=== PATIENT | male | born 1945 | race African-American/Black ===

== ENCOUNTER → 2020-07-17 | Outpatient (CLI) | payer MEDICARE, OTHER ==
--- NOTE | 2020-07-17 12:49 | XR ---
EXAMINATION TYPE: XR chest 2V DATE OF EXAM: 07/17/2020 CLINICAL HISTORY: Prostate cancer, renal cancer. Preprocedure imaging. TECHNIQUE: Frontal and lateral views of the chest are obtained. COMPARISON: chest radiograph FINDINGS: The cardiomediastinal silhouette is within normal limits for size. Pulmonary vasculature i s normal. There is no focal air space opacity, pleural effusion, or pneumothorax seen. There is multi level bridging osteophytosis of the thoracic spine. IMPRESSION: 1. No acute cardiopulmonary process. 2. Thoracic spine bridging osteophytosis may represent diffuse idiopathic skeletal hyperostosis (DISH ).
--- NOTE | 2020-07-17 13:15 | CT ---
EXAMINATION TYPE: CT abdomen pelvis w con DATE OF EXAM: 07/17/2020 COMPARISON: None. HISTORY: abnormal prostate biopsy, prostate cancer. CT DLP: 2155.6 mGycm, Automated Exposure Control for Dose Reduction was Utilized. CONTRAST: CT scan of the abdomen and pelvis is performed with oral and with IV Contrast, patient injected with 80 mL of Isovue 300. FINDINGS: LUNG BASES: Mild cardiomegaly. Tiny anterior-inferior pericardial effusion. LIVER/GB: Tiny 2 to 3 mm calcified dependent gallstone axial image 27. Single calcification right hep atic lobectomy 19. PANCREAS: No significant abnormality is seen. SPLEEN: No significant abnormality is seen. ADRENALS: No significant abnormality is seen. KIDNEYS: Symmetric cortical medullary uptake and excretion of both kidneys with asymmetric cortical t hinning and atrophy to the left kidney noted. BOWEL: Oral contrast was not reached level of distal ileum. Small bowel feces sign distal ileal loops . No suspicious small bowel dilatation. Findings consistent with delayed passage of ingested material to colonic level. Contrast is passed through stomach which is now poorly distended and thus suboptim ally evaluated. Normal-appearing appendix seen ascending from cecum. Few scattered colonic diverticul a. No CT evidence for acute diverticulitis PROSTATE/SEMINAL VESICLES: Mildly enlarged prostate gland bulging on bladder base. No adjacent peripr osthetic adenopathy. Slightly bulky but symmetric appearing bilateral seminal vesicles. LYMPH NODES: No greater than 1cm abdominal or pelvic lymph nodes are appreciated. Prominent but subc entimeter aortocaval lymph node below level of renal vessels measures 12 x 8 mm axial image 47. OSSEOUS STRUCTURES: Severe degenerative change of both hip joints with marked joint space loss along with moderate head and neck collar spurring and extensive subchondral cystic change and sclerosis at the joint space. Multilevel facet arthropathy is present. OTHER: No significant additional abnormality is seen. IMPRESSION: No definitive mass or greater than 1 cm adenopathy. Prominent but subcentimeter retroper itoneal lymph nodes noted.
--- NOTE | 2020-07-18 10:05 | NM ---
EXAMINATION TYPE: NM bone scan whole body DATE OF EXAM: 07/17/2020 COMPARISON: CT abdomen pelvis 07/17/2020 HISTORY: Prostate cancer Delayed whole-body scanning was performed following the injection of 24.3 mCi Tc 99m MDP. Images acq uired 3 hours post injection. FINDINGS: No suspicious focal activity. There is bilateral degenerative change of the shoulders, hips, knees, a nd feet. There are also areas of uptake that appear degenerative in nature involving the thoracic spi ne and sternomanubrial joint. IMPRESSION: No focal activity suspicious for prostate cancer.
== END | disposition home or self-care (01) ==
LOC: RADNMMAIN 10:40
PROVIDERS: ATTEND Urology
DX: R59.0 Localized enlarged lymph nodes (principal); C61 Malignant neoplasm of prostate
CPT/HCPCS: 82565; 84520; 71046; 74177; 36415; 78306; A9503; Q9967

== ENCOUNTER → 2020-10-04 | Outpatient (CLI) | payer MEDICARE, OTHER ==
[2020-10-04 12:15] LABS: Basophils % (A) 1 %; Eosinophils # (A) 0.1 k/uL (0-0.7); Eosinophils % (A) 1 %; HCT 38.5 % (39.0-53.0); HGB 12.6 gm/dL (13.0-17.5); Lymphocytes # (A) 2.4 k/uL (1.0-4.8); Lymphocytes % (A) 36 %; MCH 30.7 pg (25.0-35.0); MCHC 32.8 g/dL (31.0-37.0); MCV 93.8 fL (80.0-100.0); Monocytes # (A) 0.5 k/uL (0-1.0); Monocytes % (A) 8 %; Neutrophils # (A) 3.3 k/uL (1.3-7.7); Neutrophils % (A) 51 %; Platelet Count 108 k/uL (150-450); RBC 4.11 m/uL (4.30-5.90); RDW 13.7 % (11.5-15.5); WBC 6.5 k/uL (3.8-10.6)
[2020-10-04 12:29] LABS: Calcium 10.2 mg/dL (8.4-10.2); Potassium 4.1 mmol/L (3.5-5.1)
== END | disposition home or self-care (01) ==
LOC: LABPAT 11:27
PROVIDERS: ATTEND Urology
DX: Z01.818 Encounter for other preprocedural examination (principal); C61 Malignant neoplasm of prostate; Z79.899 Other long term (current) drug therapy
CPT/HCPCS: 80048; 85025

== ENCOUNTER 2020-10-11 07:37 | Day surgery (SDC) | payer MEDICARE, OTHER ==
[2020-10-09 15:20] VITALS: BMI 39.5
--- NOTE | 2020-10-09 15:39 | P.GSHP ---
History of Present Illness H&P Date: 10/09/20 74 yo male with newly diagnosed t1c,G9 prostate cancer who is undergoing lhrh /ebrt therapy for his prostate cancer comes for a SPACEOR infusion to protect the rectum during radiation. The risks complications and alternatives have been discussed. - Constitutional Constitutional: Denies chills, Denies fever - EENT Eyes: denies blurred vision, denies pain Ears, nose, mouth and throat: Denies headache, Denies sore throat - Cardiovascular Cardiovascular: Denies chest pain, Denies shortness of breath - Respiratory Respiratory: Denies cough, Denies 7 - Gastrointestinal Gastrointestinal: Denies abdominal pain, Denies diarrhea, Denies nausea, Denies vomiting - Genitourinary (Female) Genitourinary: Denies dysuria, Denies hematuria - Genitourinary (Male) Genitourinary: Denies dysuria, Denies hematuria - Musculoskeletal Musculoskeletal: Denies myalgias - Integumentary Integumentary: Denies pruritus, Denies rash - Neurological Neurological: Denies numbness, Denies weakness - Psychiatric Psychiatric: Denies anxiety, Denies depression - Endocrine Endocrine: Denies fatigue, Denies weight change Past Medical History Past Medical History: Cancer, Diabetes Mellitus, Hyperlipidemia, Hypertension Additional Past Medical History / Comment(s): prostate cancer. gout History of Any Multi-Drug Resistant Organisms: None Reported Additional Past Surgical History / Comment(s): renal mass removed, Past Anesthesia/Blood Transfusion Reactions: No Reported Reaction Smoking Status: Never smoker - Past Family History Brother(s) Family Medical History: Cancer Medications and Allergies Home Medications Medication Instructions Recorded Confirmed Type Allopurinol [Zyloprim] 100 mg PO BID 10/09/20 10/09/20 History Aspirin [Adult Low Dose Aspirin EC] 81 mg PO DAILY 10/09/20 10/09/20 History Colchicine 0.6 mg PO DAILY 10/09/20 10/09/20 History Simvastatin [Zocor] 80 mg PO DAILY 10/09/20 10/09/20 History amLODIPine BESYLATE/BENAZEPRIL 1 cap PO DAILY 10/09/20 10/09/20 History [Lotrel 10-20 MG] cloNIDine HCL [Catapres] 0.1 mg PO BID 10/09/20 10/09/20 History glipiZIDE [Glucotrol] 2.5 mg PO AC-BID 10/09/20 10/09/20 History Allergies Allergy/AdvReac Type Severity Reaction Status Date / Time No Known Allergies Allergy Verified 10/09/20 14:55 Surgical - Exam - General well developed, well nourished, no distress - Eyes PERRL - ENT no hearing loss - Neck no masses - Respiratory normal expansion, normal respiratory effort - Cardiovascular Rhythm: regular - Abdomen Abdomen: soft, non tender - Genitourinary enlarged but palpably benign prostate normal penis with no external lesions, testicles present - Rectum Rectum: no tenderness - Integumentary no rash, no growths - Neurologic normal coordination, normal sensation - Musculoskeletal labored gait due to arthritis - Psychiatric oriented to time, oriented to person, oriented to place, speech is normal, memory intact Assessment and Plan Assessment: Impression: Prostate cancer with EBRT/LHRH therapy Plan: SPACEOR transperineal infusion
[~2020-10-11 07:37] MED LIST: DEXAMETHASONE SOD PHOSPHATE 4 MG/ML 1 ML VIAL IV ONE; HYDROmorphone 0.5 MG/0.5 ML SYRINGE IVP PRN; LACTATED RINGERS 1,000 ML IV SCH; LIDOCAINE 1% (10MG/ML) FOR IV START INTRADERMA PRN; MIDAZOLAM 2 MG/2 ML VIAL IV PRN; ONDANSETRON 4 MG/2 ML VIAL IVP ONE
[2020-10-11 08:51] LABS: Glucose,Whole Blood 131 mg/dL (75-99)
[2020-10-11] MEDS ORDERED: LIDOCAINE 2% (PF) 20 MG/ML 2 ML VIAL SQ ONE ×2 (08:55)
[2020-10-11] MEDS ORDERED: GLYCOPYRROLATE 0.2 MG/ML 2 ML VIAL ONE (09:18)
[2020-10-11] MEDS ORDERED: LIDOCAINE 1% INJ 10MG/ML (20 ML MDV) ONE (09:18)
[2020-10-11] MEDS ORDERED: KETAMINE 10 MG/ML 20 ML VIAL ONE (09:18)
[2020-10-11] MEDS ORDERED: PROPOFOL 10 MG/ML 20 ML VIAL IV ONE (09:18)
[2020-10-11] MEDS ORDERED: fentaNYL (PF) 50 MCG/ML 2 ML AMP ONE (09:18)
[2020-10-11] MEDS ORDERED: MIDAZOLAM 2 MG/2 ML VIAL ONE (09:18)
--- NOTE | 2020-10-11 09:56 | P.OP ---
Date of Procedure: 10/11/20 Preoperative Diagnosis: Adenocarcinoma of the prostate Postoperative Diagnosis: Same Procedure(s) Performed: SpaceOAR Implant Anesthesia: MAC Surgeon: Darek Bond Estimated Blood Loss (ml): 5 IV fluids (ml): 400 Pathology: none sent Condition: stable Disposition: PACU Indications for Procedure: 74 yo male with newly diagnosed T1c, [place] 9 prostate cancer who is undergoing IMRT and androgen deprivation therapy for his prostate cancer. He comes for a SPACEOR implant to protect the rectum during radiation. Operative Findings: Good separation of prostate and rectum achieved. Description of Procedure: The patient was taken to the operating room and placed in the dorsolithotomy position, with his legs supported in Max stirrups. The external genitalia was prepped and draped sterilely. The Bruel and Kjaer transrectal ultrasound probe was placed intrarectally. The prostate was imaged. The probe was then placed within the stabilizing stand. A spinal needle was advanced under ultrasonic guidance to the level of the urogenital diaphragm, and lidocaine was used to infiltrate the tissues as the needle was withdrawn. Next, the SpaceOAR needle was passed through the midline of the perineum, 1-2 cm anterior to the anal opening. The needle was slowly advanced under ultrasonic guidance until the needle tip was located within the fat plane between the prostate and rectum, at the level of the mid prostate gland. The needle was confirmed to be midline on the axial imaging. A small amount of normal saline was injected for hydrodissection. Next, the SpaceOAR components were mixed and loaded into the Y connector per protocol. The Y connector was then connected to the needle, and the components were injected slowly over a course of approximately 12 seconds. A total of 10 ml was injected. Significant distance was created between the prostate and rectum, as desired. It should be noted that at no point was there any concern of rectal perforation. The needle was withdrawn, as well as the transrectal ultrasound probe, and the procedure was terminated. The patient tolerated the procedure well and was taken to the recovery room in stable condition.
[2020-10-11 10:15] VITALS: TEMP 96.9
[2020-10-11 10:47] VITALS: RESP 16
[2020-10-11 10:56] LABS: Glucose,Whole Blood 127 mg/dL (75-99)
[2020-10-11 11:26] VITALS: BP 141/85; PULSE 79
== END 2020-10-11 12:00 | disposition home or self-care (01) ==
LOC: OR 07:37
PROVIDERS: ATTEND Urology
DX: C61 Malignant neoplasm of prostate (principal); I10 Essential (primary) hypertension; E11.9 Type 2 diabetes mellitus without complications; M19.90 Unspecified osteoarthritis, unspecified site; M10.9 Gout, unspecified; D69.6 Thrombocytopenia, unspecified; E78.5 Hyperlipidemia, unspecified; E66.01 Morbid (severe) obesity due to excess calories; Z79.84 Long term (current) use of oral hypoglycemic drugs; Z79.82 Long term (current) use of aspirin; Z79.899 Other long term (current) drug therapy; Z98.890 Other specified postprocedural states; Z68.41 Body mass index [BMI] 40.0-44.9, adult; Z80.9 Family history of malignant neoplasm, unspecified
CPT/HCPCS: 55874; J2250; J1100; J0690; J2405; J2001 ×2; J3010; J2704

== ENCOUNTER → 2020-10-29 | Outpatient (CLI) | payer MEDICARE, OTHER ==
--- NOTE | 2020-10-29 11:02 | US ---
EXAMINATION TYPE: US kidneys/renal and bladder DATE OF EXAM: 10/29/2020 COMPARISON: CT July 17, 2020 CLINICAL HISTORY: N18.3 chronic kidney disease stage 3. CKD stage 3, patient states in 2008 he had a right renal mass removed. EXAM MEASUREMENTS: Right Kidney: 12.5 x 5.9 x 6.0 cm Left Kidney: 10.2 x 5.1 x 4.2 cm Right Kidney: no hydronephrosis, 2.2cm cystic area superior pole with smaller 1.2cm cystic area infer ior pole Left Kidney: measures smaller in size when compared to right kidney, no hydronephrosis, 0.9cm hypoech oic area superior pole Bladder: not fully distended, appears wnl as seen Bilateral Jets seen: right jet seen, left jet not seen There is no evidence for hydronephrosis at this point in time bilaterally. No nephrolithiasis is see n. Asymmetric diminished size to left kidney with increase cortical echogenicity. The urinary bladde r is is not greatly distended. Bilateral ureteral jets are not seen. IMPRESSION: Evidence of chronic medical renal disease greater in the left kidney redemonstrated. No h ydronephrosis noted bilaterally.
== END | disposition home or self-care (01) ==
LOC: RADUSWWP 10:07
PROVIDERS: ATTEND Internal Medicine Nephrology
DX: N18.30 Chronic kidney disease, stage 3 unspecified (principal)
CPT/HCPCS: 76770; 77385

== ENCOUNTER → 2020-12-28 | Outpatient (CLI) | payer MEDICARE, OTHER | END | disposition home or self-care (01) | LOC: LABWHC1 15:11 | PROVIDERS: ATTEND Radiology Radiation Oncology | DX: C61 Malignant neoplasm of prostate (principal) | CPT/HCPCS: 36415; 84153 ==

== ENCOUNTER → 2021-01-21 | Outpatient (CLI) | payer MEDICARE, OTHER ==
--- NOTE | 2021-01-21 19:40 | XR ---
AP pelvis HISTORY: Right hip pain Single frontal view of the pelvis Marked osteoarthritic change is present in bilateral hips, there is loss of joint space, marginal spu rring, subchondral geode formation and sclerosis. There is a tilt of the pelvis. Bone mineralization is maintained. Possible phleboliths along the scrotum on the right. Sclerotic density present in the left proximal femur near the greater trochanter which is indeterminate in a symmetric. Degenerative d isc changes present in the lower lumbar spine. IMPRESSION: Osteoarthritic changes. Findings in the proximal left femur may represent bone island but focus is indeterminate, consider bone scan as indicated. Additional findings above.
== END | disposition home or self-care (01) ==
LOC: LABWHC1 16:14
PROVIDERS: ATTEND Orthopaedic Surgery
DX: M16.0 Bilateral primary osteoarthritis of hip (principal)
CPT/HCPCS: 72170

== ENCOUNTER → 2021-01-23 | Outpatient (CLI) | payer MEDICARE, OTHER ==
[2021-01-23 16:45] LABS: Appearance,Urine Clear (Clear); Bilirubin,Urine Negative (Negative); Blood,Urine Negative (Negative); Color,Urine Yellow; Glucose,Urine (UA) Negative (Negative); Hyaline Casts,Urine 4 /lpf (0-2); Ketones,Urine Negative (Negative); Leukocyte Esterase,Urine Negative (Negative); Mucus,Urine Rare /hpf; Nitrite,Urine Negative (Negative); PH, Urine 5.5 (5.0-8.0); Protein,Urine 1+ (Negative); RBC,Urine 1 /hpf (0-5); Specific Gravity,Urine 1.015 (1.001-1.035); Urobilinogen,Urine <2.0 mg/dL (<2.0); WBC,Urine 1 /hpf (0-5)
[2021-01-24 00:19] LABS: HCT 35.2 % (39.6-50.0); HGB 11.5 g/dL (13.0-17.0); MCH 31.5 pg (27.0-32.0); MCHC 32.7 g/dL (32.0-37.0); MCV 96.4 fL (80.0-97.0); Mean Platelet Volume 12.4 fL (9.5-12.2); Platelet Count 68 X 10*3/uL (140-440); RBC 3.65 X 10*6/uL (4.40-5.60); RDW 13.8 % (11.5-14.5); WBC 4.14 X 10*3/uL (4.50-10.00)
[2021-01-24 04:44] LABS: Urine Creatinine 181.7 mg/dL
[2021-01-24 16:47] LABS: % Iron Saturation 23.02 (15.00-50.00); African American GFR (CKD) 62.3 (60.0-200.0); Albumin 4.8 g/dL (3.80-4.90); Albumin/Globulin Ratio 1.92 (1.60-3.17); Anion Gap 14.2 mmol/L (4.00-12.00); BUN/Creat Ratio 19.23 Ratio (12.00-20.00); Calcium 10.1 mg/dL (8.7-10.3); Carbon Dioxide 24.8 mmol/L (21.6-31.8); Globulin 2.5 g/dL (1.6-3.3); Non-African American GFR(CKD) 53.8 (60.0-200.0); Phosphorus 3.7 mg/dL (2.4-5.1); Potassium 4.1 mmol/L (3.5-5.5); Total Bilirubin 0.3 mg/dL (0.2-1.2); Total Protein 7.3 g/dL (6.2-8.2); Uric Acid 4.8 mg/dL (3.7-8.7)
== END | disposition home or self-care (01) ==
LOC: LABWHC1 14:49
PROVIDERS: ATTEND Nurse Practitioner Family
DX: N18.30 Chronic kidney disease, stage 3 unspecified (principal); N39.0 Urinary tract infection, site not specified; N25.81 Secondary hyperparathyroidism of renal origin; E55.9 Vitamin D deficiency, unspecified; D64.9 Anemia, unspecified; M10.9 Gout, unspecified; R80.9 Proteinuria, unspecified
CPT/HCPCS: 36415; 80053; 81001; 82043; 82306; 82570; 82728; 83540; 83550; 83735; 83970; 84100; 84550; 85027

== ENCOUNTER → 2021-02-18 | Outpatient (CLI) | payer MEDICARE, OTHER | END | disposition home or self-care (01) | LOC: LABPAT 13:51 | PROVIDERS: ATTEND Orthopaedic Surgery | DX: Z01.812 Encounter for preprocedural laboratory examination (principal) | CPT/HCPCS: 87070 ==

== ENCOUNTER → 2021-02-18 | Outpatient (CLI) | payer MEDICARE, OTHER ==
[2021-02-18 20:49] LABS: Non-African American GFR(CKD) 49.1 (60.0-200.0)
[2021-02-18 23:34] LABS: Hemoglobin A1C 5.7 % (4.0-6.0)
== END | disposition home or self-care (01) ==
LOC: LABWHC1 13:54
PROVIDERS: ATTEND Internal Medicine
DX: E11.9 Type 2 diabetes mellitus without complications (principal)
CPT/HCPCS: 36415; 82565; 83036; 84520

== ENCOUNTER → 2021-02-26 | Day surgery (SDC) | payer MEDICARE, OTHER ==
[2021-02-22 09:25] VITALS: BMI 40.3
--- NOTE | 2021-02-25 10:55 | HP ---
HISTORY AND PHYSICAL CHIEF COMPLAINT: Right hip pain. HISTORY OF PRESENT ILLNESS: The patient is a 75-year-old retired male who presents with progressive right hip pain for the past 3 years. It has worsened recently. He is having pain with any attempted weightbearing activities. He notes groin and thigh pain. He has had a previous injection without much relief. He does use a cane and a wheelchair. PAST MEDICAL HISTORY: Significant for type 2 diabetes, gout, hypercholesterolemia, hypertension, prostate cancer and hypothyroidism. PAST SURGICAL HISTORY: Negative. CURRENT MEDICATIONS: 1. Allopurinol. 2. Amlodipine. 3. Aspirin. 4. Clonidine. 5. Colchicine. 6. Glipizide. 7. Simvastatin. ALLERGIES: He denies drug allergies. FAMILY HISTORY: Significant for heart disease and cancer. SOCIAL HISTORY: Negative for current tobacco or alcohol use. REVIEW OF SYSTEMS: Sixteen-point review of systems otherwise reviewed and is noncontributory. PHYSICAL EXAMINATION: On examination, the patient is approximately 5 feet 8 inches, 265 pounds of endomorphic habitus. HEENT exam is nonfocal. Neck is supple. Passive motion right hip, flexion 30 degrees, external rotation with the hip flexed 20 degrees, internal rotation zero degrees with pain. Clinically, he has shortening of the right lower extremity compared to the left. He walks with an antalgic gait pattern. His distal neurovascular exam appears intact in the right lower extremity. AP of the pelvis obtained in the office shows severe right hip osteoarthrosis with bone- on-bone changes and subchondral sclerosis. IMPRESSION: 1. Right hip severe osteoarthrosis-symptomatic. 2. Increased body mass index. 3. Non-insulin dependent diabetes. RECOMMENDATIONS: I talked to the patient at length regarding his condition and treatment options. At this point, he is quite limited because of pain related to his osteoarthrosis despite conservative measures with use of medications, injections, and a cane. He has also worked on weight loss. After thorough discussion, he opts to proceed with surgery. We will plan to proceed with right total hip arthroplasty utilizing a direct lateral approach. Risks and benefits were discussed at length in layman's terms. We will institute DVT prophylaxis postoperatively. The patient underwent preoperative medical evaluation by Dr. Washburn. MMARABELLAL / IJN: [id number] /
[~2021-02-26] MED LIST changes: +ACETAMINOPHEN TAB 500 MG TAB PO PRN; +MELOXICAM 7.5 MG TAB PO PRN; +TRANEXAMIC ACID 1,000 MG in SODIUM CHLORIDE 0.9% 100 ML IVPB PRN; +ceFAZolin 3 GM in SODIUM CHLORIDE 0.9% 100 ML IVPB PRN
[2021-02-26 14:00] LABS: Glucose,Whole Blood 126 mg/dL (75-99)
[2021-02-26 14:07] VITALS: BP 166/83; PULSE 92; RESP 20; TEMP 97.4
[2021-02-26 14:17] LABS: Basophils % (A) 0 %; Eosinophils % (A) 1 %; HCT 33.2 % (39.0-53.0); HGB 11.8 gm/dL (13.0-17.5); Lymphocytes # (A) 0.7 k/uL (1.0-4.8); Lymphocytes % (A) 22 %; MCH 33.3 pg (25.0-35.0); MCHC 35.4 g/dL (31.0-37.0); MCV 94.1 fL (80.0-100.0); Mean Platelet Volume 8.9; Monocytes # (A) 0.3 k/uL (0-1.0); Monocytes % (A) 10 %; Neutrophils # (A) 2.2 k/uL (1.3-7.7); Neutrophils % (A) 64 %; RBC 3.53 m/uL (4.30-5.90); RDW 13.9 % (11.5-15.5); WBC 3.4 k/uL (3.8-10.6)
[2021-02-26 14:20] LABS: Platelet Count 53 k/uL (150-450)
== END ==
LOC: OR 13:23
PROVIDERS: ATTEND Orthopaedic Surgery
DX: M16.11 Unilateral primary osteoarthritis, right hip (principal); I10 Essential (primary) hypertension; E11.9 Type 2 diabetes mellitus without complications; E78.00 Pure hypercholesterolemia, unspecified; E03.9 Hypothyroidism, unspecified; Z53.9 Procedure and treatment not carried out, unspecified reason; Z79.82 Long term (current) use of aspirin; Z79.84 Long term (current) use of oral hypoglycemic drugs; Z79.899 Other long term (current) drug therapy; Z82.49 Family history of ischemic heart disease and other diseases of the circulatory system; Z80.9 Family history of malignant neoplasm, unspecified; Z85.46 Personal history of malignant neoplasm of prostate
CPT/HCPCS: 85025; J1100; J2405; 86850; 86900; 86901

== ENCOUNTER → 2021-05-03 | Outpatient (CLI) | payer MEDICARE, OTHER | END | disposition home or self-care (01) | LOC: LABWHC1 13:16 | PROVIDERS: ATTEND Radiology Radiation Oncology | DX: C61 Malignant neoplasm of prostate (principal); Z79.818 Long term (current) use of other agents affecting estrogen receptors and estrogen levels | CPT/HCPCS: 36415; 84153 ==

== ENCOUNTER → 2021-10-30 | Outpatient (CLI) | payer MEDICARE, OTHER | END | disposition home or self-care (01) | LOC: LABWHC1 15:51 | PROVIDERS: ATTEND Radiology Radiation Oncology | DX: C61 Malignant neoplasm of prostate (principal); Z79.818 Long term (current) use of other agents affecting estrogen receptors and estrogen levels | CPT/HCPCS: 36415; 84153 ==

== ENCOUNTER → 2022-05-16 | Outpatient (CLI) | payer MEDICARE, OTHER ==
[2022-05-16 14:47] LABS: Partial Thromboplastin Time 24.5 sec (22.0-30.0); Prothrombin Time 10.5 sec (9.0-12.0)
[2022-05-16 18:05] LABS: African American GFR (CKD) 61.9 (60.0-200.0); Anion Gap 13.3 mmol/L (10.00-18.00); BUN/Creat Ratio 16.54 Ratio (12.00-20.00); Blood Urea Nitrogen 21.5 mg/dL (9.0-27.0); Calcium 9.8 mg/dL (8.7-10.3); Carbon Dioxide 22.7 mmol/L (20.0-27.5); Non-African American GFR(CKD) 53.4 (60.0-200.0); Potassium 4.2 mmol/L (3.5-5.5)
[2022-05-16 19:00] LABS: Basophils # (A) 0 X 10*3/uL (0.00-0.10); Basophils % (A) 0 %; Eosinophils # (A) 0.02 X 10*3/uL (0.04-0.35); Eosinophils % (A) 0.4 %; HCT 33.1 % (39.6-50.0); HGB 10.2 g/dL (13.0-17.0); Immature Grans, Automated 0.4 %; Lymphocytes # (A) 1.47 X 10*3/uL (0.90-5.00); Lymphocytes % (A) 30.6 %; MCH 29.1 pg (27.0-32.0); MCHC 30.8 g/dL (32.0-37.0); MCV 94.6 fL (80.0-97.0); Mean Platelet Volume 10.7 fL (9.5-12.2); Monocytes # (A) 0.53 X 10*3/uL (0.20-1.00); NRBC Per 100 WBC 0 /100 WBCS (0.0-0.0); Neutrophils # (A) 2.76 X 10*3/uL (1.80-7.70); Neutrophils % (A) 57.6 %; Platelet Count 86 X 10*3/uL (140-440); RBC Morphology NORMAL; RDW 14.7 % (11.5-14.5)
== END | disposition home or self-care (01) ==
LOC: LABPAT 13:52
PROVIDERS: ATTEND Orthopaedic Surgery
DX: Z01.812 Encounter for preprocedural laboratory examination (principal); Z22.322 Carrier or suspected carrier of Methicillin resistant Staphylococcus aureus; M16.11 Unilateral primary osteoarthritis, right hip
CPT/HCPCS: 80048; 85025; 85610; 85730; 87070

== ENCOUNTER 2022-05-27 07:52 | Inpatient (IN) | payer MEDICARE, OTHER ==
[2022-05-21 11:08] VITALS: BMI 38.0
--- NOTE | 2022-05-26 10:00 | HP ---
HISTORY AND PHYSICAL CHIEF COMPLAINT: Right hip pain. HISTORY OF PRESENT ILLNESS: The patient is a 76-year-old retired male who presents with progressive right hip pain for the past several years, worsening recently. He has a difficult time getting up from a seated position. He also has significant pain with weight-bearing activities. He has been using a cane. He has also tried medications and injection, without much relief. PAST MEDICAL HISTORY: Significant for arthritis, type 2 diabetes, gout, hypercholesterolemia, hypertension, hypothyroidism, prostate disease and thrombocytopenia. PAST SURGICAL HISTORY: Negative. CURRENT MEDICATIONS: Allopurinol, amlodipine, aspirin clonidine, colchicine, glipizide and simvastatin. ALLERGIES: HE DENIES DRUG ALLERGIES. FAMILY HISTORY: Significant for cancer and heart disease. SOCIAL HISTORY: Negative for current tobacco or alcohol use. REVIEW OF SYSTEMS: Sixteen-point review of systems is otherwise reviewed and noncontributory. PHYSICAL EXAMINATION: On examination, the patient is approximately 5 feet 8 inches, 250 pounds of endomorphic habitus. HEENT exam is nonfocal. Neck is supple. On examination of the right hip, active range of motion: Flexion 60 degrees, external rotation with the hip flexed 20 degrees, internal rotation zero degrees with pain. He has an antalgic gait pattern. His distal neurovascular exam appears intact in the right lower extremity. AP of the pelvis obtained in the office showed severe right hip osteoarthrosis with [id number] changes. IMPRESSION: 1. Right hip severe osteoarthrosis. 2. Rum-radkyfm-ubhwckjdq diabetes. 3. History of thrombocytopenia. RECOMMENDATIONS: I talked to the patient at length regarding his condition along with treatment options. At this point he is quite limited because of pain related to his osteoarthrosis despite conservative measures. After thorough discussion, he opts to proceed with surgery. We will plan to proceed with right total hip arthroplasty utilizing the lateral approach. Potentially he will require platelet transfusion postoperatively. MMODL / IJN: [id number] /
[~2022-05-27 07:52] MED LIST changes: -ACETAMINOPHEN TAB 500 MG TAB PO PRN; -LACTATED RINGERS 1,000 ML IV SCH; -MELOXICAM 7.5 MG TAB PO PRN; -TRANEXAMIC ACID 1,000 MG in SODIUM CHLORIDE 0.9% 100 ML IVPB PRN; +TRANEXAMIC ACID IN NACL,ISO-OS 1,000 MG in SALINE 1 100ML.BAG IVPB PRN; -ceFAZolin 3 GM in SODIUM CHLORIDE 0.9% 100 ML IVPB PRN
[2022-05-27 08:57] LABS: Glucose,Whole Blood 121 mg/dL (70-110)
[2022-05-27] MEDS: MELOXICAM 7.5 MG TAB PO PRN (09:02)
[2022-05-27] MEDS: ACETAMINOPHEN TAB 500 MG TAB PO PRN (09:02)
[2022-05-27 09:13] LABS: Basophils % (A) 0 %; Eosinophils % (A) 1 %; HGB 10.4 gm/dL (13.0-17.5); Lymphocytes # (A) 1.1 k/uL (1.0-4.8); Lymphocytes % (A) 28 %; MCH 31.3 pg (25.0-35.0); MCHC 32.5 g/dL (31.0-37.0); MCV 96.1 fL (80.0-100.0); Mean Platelet Volume 9.3; Monocytes # (A) 0.3 k/uL (0-1.0); Monocytes % (A) 9 %; Neutrophils # (A) 2.3 k/uL (1.3-7.7); Neutrophils % (A) 60 %; RBC 3.33 m/uL (4.30-5.90); RDW 15.4 % (11.5-15.5); WBC 3.9 k/uL (3.8-10.6)
[2022-05-27 09:22] LABS: Platelet Count 67 k/uL (150-450)
[2022-05-27 09:23] LABS: RBC Morphology Normal
[2022-05-27] MEDS ORDERED: ACETAMINOPHEN TAB 325 MG TAB PO PRN (10:04)
--- NOTE | 2022-05-27 10:49 | P.PN ---
Progress Note - Text Progress Note Date: 05/27/22 The patient's platelet count was 67,000. We will plan on admitting him and transfusing platelets tomorrow morning, anticipating proceeding with surgery tomorrow afternoon.
[2022-05-27] MEDS: LACTATED RINGERS 1,000 ML IV SCH (11:45)
[2022-05-27 11:59] LABS: Glucose,Whole Blood 120 mg/dL (70-110)
[2022-05-27 16:35] LABS: Glucose,Whole Blood 183 mg/dL (70-110)
--- NOTE | 2022-05-27 20:14 | CONS ---
CONSULTATION DATE OF SERVICE: 05/27/2022 REASON FOR CONSULTATION: Advice regarding diabetes mellitus and other medical issues, requested by Orthopedic Surgery. HISTORY OF PRESENT ILLNESS: This 76-year-old gentleman with a past medical history of diabetes and hyperlipidemia, being followed by Dr. Washburn in the outpatient setting, had thrombocytopenia, which is being evaluated by Hematology/Oncology. The platelets were found to be 67. Platelet transfusion is being arranged prior to the surgery. No chest pain. No palpitations. No fever. PAST MEDICAL HISTORY: Reviewed. It includes diabetes mellitus and hypertension. HOME MEDICATIONS: Reviewed. They include Glucotrol. Doses and the rest of the medications are noted. ALLERGIES: NONE. FAMILY HISTORY: History of cancer. SOCIAL HISTORY: No history of smoking or alcohol. REVIEW OF SYSTEMS: Fourteen-point review of systems negative except as mentioned earlier. PHYSICAL EXAMINATION: Pulse is 65, blood pressure 151/73, respiration 18. HEENT: Conjunctivae normal. NECK: No jugular venous distention. CARDIOVASCULAR: S1, S2 muffled. RESPIRATION: Breath sounds diminished at the bases. No rhonchi. No crackles. ABDOMEN: Soft, nontender. LEGS: No edema. No swelling. NERVOUS SYSTEM: No focal deficit. SKIN: No ulcer, rash, bleeding. JOINTS: No active deforming arthropathy. LABS: WBC ntd platelets 67. Glucose noted. ASSESSMENT: 1. Right hip severe degenerative joint disease for surgery. 2. Thrombocytopenia. 3. Diabetes mellitus, type 2. 4. Hypertension. 5. Multiple medical issues. RECOMMENDATIONS AND DISCUSSION: In this 76-year-old gentleman has presented for surgery at this time. The patient has thrombocytopenia. Platelet transfusion has been arranged. We will follow the patient closely. Resume the home medications. The patient may be asked to follow up with primary physician and Hematology after discharge. Thank you, Dr. Barrios, for letting us participate in the care of this patient. MMODL / IJN: [id number] / MTDD
[2022-05-27] MEDS: ATORVASTATIN 40 MG TAB PO SCH (21:18)
[2022-05-27] MEDS: cloNIDine HCL 0.1 MG TAB PO SCH (21:18)
[2022-05-27 21:29] LABS: Glucose,Whole Blood 142 mg/dL (70-110)
[2022-05-28 07:09] LABS: Basophils % (A) 0 %; Eosinophils % (A) 0 %; HCT 29.4 % (39.0-53.0); HGB 9.7 gm/dL (13.0-17.5); Hypochromasia Slight; Lymphocytes # (A) 1.2 k/uL (1.0-4.8); Lymphocytes % (A) 22 %; MCH 31.4 pg (25.0-35.0); MCV 95.2 fL (80.0-100.0); Mean Platelet Volume 9.5; Monocytes # (A) 0.3 k/uL (0-1.0); Monocytes % (A) 7 %; Neutrophils # (A) 3.6 k/uL (1.3-7.7); Neutrophils % (A) 70 %; RBC 3.08 m/uL (4.30-5.90); WBC 5.2 k/uL (3.8-10.6)
[2022-05-28 07:11] LABS: Glucose,Whole Blood 127 mg/dL (70-110)
[2022-05-28 07:14] LABS: Platelet Count 82 k/uL (150-450)
[2022-05-28] MEDS: cloNIDine HCL 0.1 MG TAB PO SCH ×3 (07:29→21:24)
[2022-05-28 10:47] LABS: African American GFR (CKD) 70.3 (60.0-200.0); Anion Gap 10.8 mmol/L (10.00-18.00); BUN/Creat Ratio 19.23 Ratio (12.00-20.00); Blood Urea Nitrogen 22.5 mg/dL (9.0-27.0); Calcium 9.7 mg/dL (8.7-10.3); Carbon Dioxide 26.1 mmol/L (20.0-27.5); Non-African American GFR(CKD) 60.6 (60.0-200.0); Potassium 4.2 mmol/L (3.5-5.5)
[2022-05-28] MEDS: LATANOPROST 0.005% OPHTH DROPS 2.5 ML BTL BOTH EYES SCH (10:51)
[2022-05-28] MEDS: METOPROLOL SUCCINATE (ER) 50 MG TAB.ER.24H PO SCH (10:51)
[2022-05-28 11:50] LABS: Glucose,Whole Blood 101 mg/dL (70-110)
[2022-05-28] MEDS: LACTATED RINGERS 1,000 ML IV SCH (12:23)
[2022-05-28 12:31] LABS: Glucose,Whole Blood 98 mg/dL (70-110)
[2022-05-28] MEDS ORDERED: ACETAMINOPHEN TAB 500 MG TAB ONE (12:47)
[2022-05-28] MEDS ORDERED: ONDANSETRON 4 MG/2 ML VIAL ONE (12:47)
[2022-05-28] MEDS: MELOXICAM 7.5 MG TAB PO PRN (12:51)
[2022-05-28] MEDS ORDERED: DEXAMETHASONE SOD PHOSPHATE 4 MG/ML 1 ML VIAL IVP ONE (12:51)
[2022-05-28] MEDS: ACETAMINOPHEN TAB 500 MG TAB PO PRN (12:51)
[2022-05-28] MEDS ORDERED: SUCCINYLCHOLINE CHLORIDE 100 MG/5 ML SYR IV ONE (13:27)
[2022-05-28] MEDS ORDERED: PROPOFOL 10 MG/ML 20 ML VIAL IV ONE (13:27)
[2022-05-28] MEDS ORDERED: TRANEXAMIC ACID IN NACL,ISO-OS 1,000 MG/100 ML BAG ONE (13:27)
[2022-05-28] MEDS ORDERED: MIDAZOLAM 2 MG/2 ML VIAL ONE (13:27)
[2022-05-28] MEDS ORDERED: LIDOCAINE 2% INJ 20 MG/ML (2 ML VIAL) ONE (13:27)
[2022-05-28] MEDS ORDERED: SODIUM CHLORIDE 0.9% IRRIG 1,000 ML BTL IRRIGATION ONE (13:27)
[2022-05-28] MEDS ORDERED: HEPARIN SODIUM,PORCINE 10,000 UNIT/ML 1 ML VIAL ONE (13:27)
[2022-05-28] MEDS ORDERED: fentaNYL (PF) 50 MCG/ML 2 ML AMP ONE (13:27)
[2022-05-28] MEDS ORDERED: HYDROmorphone (PF) 1 MG/ML ONE (13:27)
--- NOTE | 2022-05-28 14:41 | P.PN ---
Subjective Progress Note Date: 05/28/22 This is a 76-year-old male who was recently admitted under orthopedic services for progressive right hip pain that had been worsening and recently causing increased difficulty in ambulation and continued pain with significant pain during weightbearing activities. Medical management consulted for low platelets and patient is scheduled tentatively for surgery today. Patient was evaluated by hematology/oncology and platelets were 67. Patient received platelets and plan for surgery. Patient is currently afebrile denies any chest pain or shortness of breath. Patient is currently nothing by mouth for the procedure and recommend to continue monitoring Accu-Cheks before meals and at bedtime and continue with sliding scale and close monitoring of blood sugars. Platelets today are 82. Review of systems: Constitutional: reports of fatigue, fever, or chills Cardiovascular: No reports of chest pain or palpitations Respiratory: No reports of worsening shortness of breath or cough GI: No reports of nausea, no reports of of vomiting, no reports of diarrhea : No reports of dysuria or retention Neurovascular: reports of generalized weakness and right hip pain All medications have been reviewed Active Medications Acetaminophen (Acetaminophen Tab 325 Mg Tab) 650 mg PO Q6HR PRN PRN Reason: Fever and/ or Pain Allopurinol (Allopurinol 100 Mg Tab) 100 mg PO 1200 [facility] Amlodipine Besylate (Amlodipine 10 Mg Tab) 10 mg PO 1200 [facility] Atorvastatin Calcium (Atorvastatin 40 Mg Tab) 40 mg PO HS [facility] Last Admin: 05/27/22 21:18 Dose: 40 mg Clonidine (Clonidine Hcl 0.1 Mg Tab) 0.1 mg PO TID [facility] Last Admin: 05/28/22 07:29 Dose: 0.1 mg Glipizide (Glipizide 5 Mg Tab) 5 mg PO 1200 [facility] Lactated Ringer's (Lactated Ringers) 1,000 mls @ 20 mls/hr IV .Q24H [facility] Stop: 06/26/22 05:41 Last Admin: 05/27/22 11:45 Dose: Not Given Latanoprost (Latanoprost 0.005% Ophth Drops 2.5 Ml Btl) 1 drops BOTH EYES DAILY [facility] Last Admin: 05/28/22 10:51 Dose: 1 drops Lidocaine HCl (Lidocaine 1% (10mg/Ml) For Iv Start) 0.1 ml INTRADERMA PER PROTOCOL PRN PRN Reason: IV Start Stop: 06/26/22 05:41 Lisinopril (Lisinopril 20 Mg Tab) 20 mg PO 1200 [facility] Metoprolol Succinate (Metoprolol Succinate (Er) 50 Mg Tab.Er.24h) 50 mg PO 1200 [facility] Last Admin: 05/28/22 10:51 Dose: 50 mg Torsemide (Torsemide 20 Mg Tab) 5 mg PO 1200 [facility] PHYSICAL EXAMINATION: GENERAL: The patient is alert and oriented x4, thin build, ill-appearing HEENT: Pupils are round and equally reacting to light. EOMI. no scleral icterus. No conjunctival pallor. Normocephalic, atraumatic. No pharyngeal erythema. No thyromegaly. CARDIOVASCULAR: S1 and S2 muffled PULMONARY: diminished breath sounds bilaterally with no wheezing or rhonchi noted. ABDOMEN: soft. Nontender on exam. obese. non-distended, normoactive bowel sounds. No palpable organomegaly. MUSCULOSKELETAL: No joint swelling or deformity. EXTREMITIES: No cyanosis, clubbing, or pedal edema. Right hip pain NEUROLOGICAL: Gross neurological examination did not reveal any focal deficits. Diffuse weakness SKIN: No rashes. Assessment: Severe osteoarthrosis of the right hip Diabetes mellitus type 2 History of thrombocytopenia Hypertension Multiple medical issues GI prophylaxis DVT prophylaxis Full code Plan: Recommend to continue with current medications and management with orthopedic services. Patient platelets currently 82 and awaiting a unit of platelets for surgery and is scheduled for surgery of the right hip today. Recommend repeat labs in the a.m. and close monitoring of platelet count. Monitor for any signs of bleeding and will follow-up with repeat labs. Patient is currently nothing by mouth and recommend close monitoring of blood sugars as patient is diabetic and will resume diet when surgically clear and continue to monitor Accu-Cheks before meals and at bedtime. Due to multiple complex medical issues, prognosis is guarded. We will continue to monitor and follow along closely with orthopedics during hospitalization. Recommend close hematology follow-up after discharge as well. Thank you for this consultation. The impression and plan of care has been dictated by Angelica De, nurse practitioner as directed. Dr. Carlos MD I have performed a history and examination and MDM of this patient, discussed the same with the dictator, and agree with the dictator's assessment and plan as written ,documented as a scribe. Based on total visit time, I have performed more than 50% of the visit. Any additional findings or plans will be noted. Objective - Vital Signs Vital signs: Vital Signs Temp 97.6 F 05/28/22 12:30 Pulse 66 05/28/22 12:30 Resp 16 05/28/22 12:30 BP 172/79 05/28/22 12:30 Pulse Ox 98 05/28/22 12:30 FiO2 Intake & Output 05/27/22 05/28/22 05/28/22 18:59 06:59 18:59 Intake Total 292 Output Total 1750 750 Balance -1458 -750 Weight 108.86 kg Intake: Blood Product 292 Platelet Pheresis Pas 292 Psoralen Unit [id number] Output: Urine 1750 750 Other: Voiding Method Toilet Toilet Urinal # Voids 1 - Labs CBC & Chem 7: 05/28/22 06:43 05/28/22 06:43 Labs: Abnormal Lab Results - Last 24 Hours (Table) 05/27/22 05/27/22 05/28/22 Range/Units 16:34 21:28 06:43 RBC 3.08 L (4.30-5.90) m/uL Hgb 9.7 L (13.0-17.5) gm/dL Hct 29.4 L (39.0-53.0) % Plt Count 82 L (150-450) k/uL Glucose (70-110) mg/dL POC Glucose (mg/dL) 183 H 142 H (70-110) mg/dL 05/28/22 05/28/22 Range/Units 06:43 07:09 RBC (4.30-5.90) m/uL Hgb (13.0-17.5) gm/dL Hct (39.0-53.0) % Plt Count (150-450) k/uL Glucose 126 H (70-110) mg/dL POC Glucose (mg/dL) 127 H (70-110) mg/dL
[2022-05-28] MEDS ORDERED: HYDROcodone/APAP 5-325MG 1 EACH TAB PO PRN (15:06)
[2022-05-28] MEDS ORDERED: NALOXONE 0.4 MG/ML 1 ML VIAL IV PRN (15:06)
[2022-05-28] MEDS ORDERED: HYDROmorphone 0.5 MG/0.5 ML SYRINGE IVP PRN ×2 (15:06)
--- NOTE | 2022-05-28 15:32 | P.OP ---
Date of Procedure: 05/28/22 Preoperative Diagnosis: Severe right hip osteoarthrosis Postoperative Diagnosis: Same Procedure(s) Performed: Right total hip arthroplastypress-fitlateral approach Implants: Depuy Corail size 12 collared KLA press-fit femoral stem, 36+5 cobalt chrome femoral head, 60 mm Ripley acetabular shell with neutral polyethylene liner. Anesthesia: CARMENZA Surgeon: Padilla Barrios Spring Machine Operator #1: Ney Faith Estimated Blood Loss (ml): 150 Pathology: other (Femoral head) Condition: stable Disposition: PACU Indications for Procedure: Patient 76-year-old noted presents with progressive right hip pain secondary to osteoporosis despite conservative measures. A discussion of the risks and benefits of operative intervention versus continued conservative measures was made with patient. He opted proceed with surgery. Operative risks to include infection, neurovascular injury, development of blood clots, fracture, leg length discrepancy, instability, possible need for subsequent procedures was discussed. Informed consent was obtained. Operative Findings: As below Description of Procedure: The patient was brought to the operating room, and after induction of spinal anesthesia was placed in a lateral decubitus position. The bony prominences were appropriately padded. The pelvis was stable perpendicular to the floor with a pegboard. The right lower extremity was prepped and draped in normal fashion. A 12 cm incision was then made centered over the greater trochanter extending superiorly to level the ASIS and distally in line with the femoral shaft. The skin and subcutaneous tissues were divided sharply. Electrocautery was used for hemostasis. The fascia mary and gluteus lorie fascia was split in line with the skin incision. The muscle fibers were bluntly dissected proximally. A self-retaining retractor was placed. The anterior and posterior margins of the gluteus medius muscles identified and the anterior two thirds was detached from the greater trochanter with electrocautery. The gluteus minimus tendon was identified and detached in a similar fashion. A wide capsulotomy was performed. The femoral neck fracture was identified in the lower neck cut was made approximately 1 1/2 cm above the level of the lesser trochanter with a sagittal saw at a 45 the shaft. The head was then extracted with a corkscrew. Attention was then paid towards preparing the acetabular. Anterior and posterior retractors were placed. The remaining capsular labral tissues debrided sharply clearly defining the acetabular margins. Began reaming with a 53 mm reamer taking care to initially medialize, then reaming at 45 of abduction and 20 of anteversion. Sequential reaming is performed up to 59 mm. This was down to bleeding bony surface. A trial 60 mm acetabular shell was inserted at 45 of abduction and 20 of anteversion. This was fully seated. There was good rim fit and stability. A neutral polyethylene liner was then impacted. Care taken to avoid any soft tissue interposition. Attention was then paid towards preparing the proximal femur. A box chisel was used to open the metaphyseal region. A canal finder was used to find the femoral canal. Sequential broaching was performed up to a size 12. This is placed in 15 of anteversion with the leg perpendicular floor judging off the trans-epicondylar axis. There was good rotational stability. A calcar mill was used to fashion the medial calcar. A trial KLA neck along with a 36 mm + 5 trial head was placed. The hip was gently reduced. It was taken through range of motion. I felt to be stable in flexion and extension with internal and external rotation. I felt there was adequate pentecostal of soft tissue tension. The hip was gently dislocated. The trial components removed. Pulsatile lavage was utilized. The final size 12 KLA collared femoral stem was inserted again with the leg perpendicular to the floor in 15 of anteversion. Again there was good rotational stability. A 36 mm +5 cobalt chrome femoral head was gently impacted. The hip was gently reduced. Again it was taken through motion and felt to be stable in flexion and extension with internal and external rotation. Pulsatile lavage was again utilized. With the leg in abduction the gluteus minimus and medius tendons reattached to the greater trochanter with #2 Ethibond suture. There was minimal drainage therefore a deep drain was not placed. The fascia mary and gluteus lorie fascia was closed with #2 Ethibond suture. The subcutaneous tissues were reapproximated interrupted 2-0 Vicryl sutures. The skin was reapproximated with 3-0 subcuticular strata fix suture. Skin tape and adhesive was applied. A sterile dressing was applied. The patient was awoken from sedation and transferred to recovery room in good condition. Blood loss was estimated 150 mL. No complications were incurred. Sponge and needle counts were correct in the case. Ney PAGE assisted during the major composes case to include exposure, implantation, and closure.
--- NOTE | 2022-05-28 16:02 | XR ---
Limited right hip HISTORY: Status post right hip arthroplasty Single frontal view of the right hip Patient is status post right hip arthroplasty. There is anatomic alignment. Lucencies present within the soft tissues. IMPRESSION: Orthopedic follow-up.
[2022-05-28] MEDS: lisinopriL 20 MG TAB PO SCH (17:34)
[2022-05-28] MEDS: amLODIPine 10 MG TAB PO SCH (17:34)
[2022-05-28] MEDS: allopurinoL 100 MG TAB PO SCH (17:34)
[2022-05-28] MEDS: TORSEMIDE 20 MG TAB PO SCH (17:34)
[2022-05-28] MEDS: glipiZIDE 5 MG TAB PO SCH (17:35)
[2022-05-28] MEDS: ATORVASTATIN 40 MG TAB PO SCH (20:45)
[2022-05-28] MEDS ORDERED: SENNOSIDES-DOCUSATE SODIUM 1 EACH TAB PO SCH (21:00)
[2022-05-28 21:12] LABS: Glucose,Whole Blood 121 mg/dL (70-110)
[2022-05-28] MEDS: HYDROcodone/APAP 7.5-325MG 1 EACH TAB PO PRN (22:26)
[2022-05-29] MEDS: HYDROcodone/APAP 7.5-325MG 1 EACH TAB PO PRN ×2 (05:00→11:35)
[2022-05-29 07:05] LABS: Glucose,Whole Blood 116 mg/dL (70-110)
[2022-05-29 07:40] LABS: African American GFR (CKD) 85 (>60 ml/min/1.73 sqM); Anion Gap 12 mmol/L; Blood Urea Nitrogen 22 mg/dL (9-20); Calcium 9.5 mg/dL (8.4-10.2); Carbon Dioxide 25 mmol/L (22-30); Chloride 102 mmol/L (98-107); Glucose 121 mg/dL (74-99); Non-African American GFR(CKD) 73 (>60 ml/min/1.73 sqM); Potassium 4.5 mmol/L (3.5-5.1); Sodium 139 mmol/L (137-145)
[2022-05-29] MEDS: LACTATED RINGERS 1,000 ML IV SCH (07:44)
[2022-05-29 07:51] VITALS: RESP 18
[2022-05-29] MEDS ORDERED: ENOXAPARIN 40 MG/0.4 ML SYRINGE SQ SCH (09:00)
[2022-05-29 10:08] LABS: Basophils # (A) 0.01 X 10*3/uL (0.00-0.10); Basophils % (A) 0.1 %; Eosinophils # (A) 0 X 10*3/uL (0.04-0.35); Eosinophils % (A) 0 %; HCT 31.7 % (39.6-50.0); HGB 9.7 g/dL (13.0-17.0); Immature Grans, Automated 0.6 %; Lymphocytes # (A) 1.22 X 10*3/uL (0.90-5.00); Lymphocytes % (A) 17.3 %; MCH 29.2 pg (27.0-32.0); MCHC 30.6 g/dL (32.0-37.0); MCV 95.5 fL (80.0-97.0); Monocytes % (A) 9.9 %; NRBC Per 100 WBC 0 /100 WBCS (0.0-0.0); Neutrophils # (A) 5.08 X 10*3/uL (1.80-7.70); Neutrophils % (A) 72.1 %; Platelet Count 104 X 10*3/uL (140-440); RBC 3.32 X 10*6/uL (4.40-5.60); RDW 14.7 % (11.5-14.5); WBC 7.05 X 10*3/uL (4.50-10.00)
[2022-05-29] MEDS: LATANOPROST 0.005% OPHTH DROPS 2.5 ML BTL BOTH EYES SCH (10:25)
[2022-05-29] MEDS: cloNIDine HCL 0.1 MG TAB PO SCH (10:26)
[2022-05-29 11:16] LABS: Glucose,Whole Blood 131 mg/dL (70-110)
[2022-05-29 11:19] LABS: Glucose,Whole Blood 132 mg/dL (70-110)
--- NOTE | 2022-05-29 11:27 | P.PN ---
Subjective Progress Note Date: 05/29/22 Principal diagnosis: Status post right total hip arthroplasty, lateral approach Patient was evaluated today at bedside, he is resting in his hospital chair. He was able to ambulate with physical therapy with use of a walker. Patient states that he went very well. His pain is currently controlled with current medication. He has been urinating with no difficulty. He denies any headaches, lightheadedness, chest pain or shortness of breath. Labs were also reviewed this morning, platelets are at 102. Objective - Vital Signs Vital signs: Vital Signs Temp 98.2 F 05/29/22 07:50 Pulse 71 05/29/22 07:50 Resp 18 05/29/22 08:00 BP 171/71 05/29/22 07:50 Pulse Ox 96 05/29/22 07:53 FiO2 Intake & Output 05/28/22 05/29/22 05/29/22 18:59 06:59 18:59 Intake Total 1197 Output Total 900 450 Balance 297 -450 Intake: IV 850 Blood Product 347 Platelet Pheresis Pas 347 Psoralen Unit [id number] Output: Urine 750 450 Estimated Blood Loss 150 Other: Voiding Method Toilet Toilet Toilet Urinal Urinal Urinal # Voids 1 # Bowel Movements 0 - Exam Right lower extremity: Incision is clean, dry, and intact. The postop dressing is in good condition. There is minimal soft tissue swelling and ecchymosis surrounding the medial and lateral aspects of the incision. Calf is soft, no tenderness with palpation. Plantar flexion, dorsiflexion, EHL, FHL are intact. Sensory exam to light touch throughout the extremity is intact, dorsal pedis pulses 2+. - Labs CBC & Chem 7: 05/29/22 06:15 05/29/22 06:15 Labs: Abnormal Lab Results - Last 24 Hours (Table) 05/28/22 05/29/22 05/29/22 Range/Units 21:09 06:15 06:15 RBC 3.32 L (4.40-5.60) X 10*6/uL Hgb 9.7 L (13.0-17.0) g/dL Hct 31.7 L (39.6-50.0) % MCHC 30.6 L (32.0-37.0) g/dL RDW 14.7 H (11.5-14.5) % Plt Count 104 L (140-440) X 10*3/uL Eosinophils # 0 L (0.04-0.35) X 10*3/uL BUN 22 H (9-20) mg/dL Glucose 121 H (74-99) mg/dL POC Glucose (mg/dL) 121 H (70-110) mg/dL 05/29/22 05/29/22 05/29/22 Range/Units 07:04 11:13 11:18 RBC (4.40-5.60) X 10*6/uL Hgb (13.0-17.0) g/dL Hct (39.6-50.0) % MCHC (32.0-37.0) g/dL RDW (11.5-14.5) % Plt Count (140-440) X 10*3/uL Eosinophils # (0.04-0.35) X 10*3/uL BUN (9-20) mg/dL Glucose (74-99) mg/dL POC Glucose (mg/dL) 116 H 131 H 132 H (70-110) mg/dL Assessment and Plan Assessment: Postoperative day #1 status post right total hip arthroplasty lateral approach Thrombocytopenia Other medical comorbidities Plan: Pain control, continue with current medications DVT prophylaxis, I did speak with internal medicine today regarding this. A consult was placed for hematology for evaluation and recommendations for outpatient anticoagulation treatment Wound care was discussed with patient, this including showering instructions along with icing and elevating Hip precautions were discussed with patient, continue to use walker with ambulation Home therapy/nursing after discharge Encourage incentive spirometer Medical recommendations Discharge planning: Planning for discharge home today Time with Patient: Less than 30
--- NOTE | 2022-05-29 12:18 | P.DS ---
Providers Date of admission: 05/27/22 09:55 Expected date of discharge: 05/29/22 Attending physician: Padilla Barrios Consults: 05/27/22 11:30 Consult Physician Routine Consulting Provider: Jacob Gonzalez Consult Reason/Comments: Medical Management - right hip OA - thrombocytopenia Do you want consulting provider notified?: Yes Primary care physician: Wu Sin Hospital Course: Date of admission: 05/27/2022 Date of discharge: 05/29/2022 Admission diagnosis: Right hip osteoarthritis, thrombocytopenia Discharge diagnosis: Status post right total hip arthroplasty lateral approach, thrombocytopenia Attending physician: Dr. Barrios Surgical procedures: Right total hip arthroplasty lateral approach Brief history: Patient is a 76-year-old male with a history of progressive primary right hip osteoarthritis. At this point patient has failed conservative treatment measures and has opted to proceed with a elective right total hip arthroplasty lateral approach. Hospital course: Details of patient's surgery can be found in operative report. Patient tolerated the procedure well and was subsequently transported to orthopedic floor. Patient's orthopeidc and medical care was provided daily. Patient had daily laboratory tests performed for evaluation of overall blood counts. Patient had daily physical therapy to include strengthening range of motion as well as education with walker ambulation. Patient was treated with Lovenox for their postoperative DVT prophylaxis during their inpatient stay. Patient was noted to have a relatively uneventful postoperative course. Patient was originally scheduled for surgery for 05/27/2022. Initial labs demonstrated a femoral sided pain, patient's surgery was rescheduled for 05/28/2022. He did receive 1 unit of platelets prior to the surgery on 05/28/2022 and then received a second unit after surgery. Hematology was available for consultation and recommendations during her hospital stay. Patient reported satisfactory pain control with oral pain medications by postoperative day 0. Patient showed satisfactory progress with physical therapy. Patient moved steadily through the program and had no difficulty meeting the goals by postoperative day 1. Given patient's otherwise satisfactory course and having met physical therapy goals, plan is to discharge patient home on postoperative day 1. Discharge condition/disposition: Patient will be discharged home in stable condition. Discharge medications: Instructions are given on resumption of patient's normal daily medications per primary care recommendation, in addition patient will be prescribed Geronimo 7.5 mg/325 mg, aspirin 81 mg, Colace on her milligrams. Discharge instructions: 1. Wound care and infection precautions, keep incision dry and covered while showering, no lotions, creams, moisturizers. No soaking, tubs, pools, hottubs. Do not scrub over the incision. 2. Weight-bear as tolerated with walker / cane until follow-up. Hip precautions to include, no crossing of the legs, no sleeping on affected side, no sitting in low chairs 3. Ice and elevate when necessary. Do not exceed 20 minutes per hour with ice pack. 4. Utilize compression sleeve until seen at first follow up appointment. 5. Visiting nursing care. 6. Home physical therapy including home CPM. 7. Pain meds and anticoagulants per prescription. 8. Pain medication has potential to cause constipation. Increase oral fluid and fiber intake. Contact primary care provider if you have not had a bowel movement within 48 hours after discharge 9. No anti-inflammatory medication until discussed at first post operative visit, this including Motrin, Aleve, Mobic, Diclofenac. 10. Follow up in office at 2 weeks postop with Mumtaz Curiel PA-C/Ney Betancourt 11. Follow up with your primary care doctor 7-10 days after discharge. 12. Contact [facility] with any questions, . Procedures: Right total hip arthroplasty, lateral approach Plan - Discharge Summary Discharge Rx Participant: Yes New Discharge Prescriptions: New HYDROcodone/APAP 7.5-325MG [Geronimo 7.5] 1 each PO Q6HR PRN #28 tab PRN Reason: Pain Aspirin [Adult Low Dose Aspirin EC] 81 mg PO BID #60 tab Docusate [Colace] 100 mg PO DAILY #30 capsule No Action cloNIDine HCL [Catapres] 0.1 mg PO TID amLODIPine BESYLATE/BENAZEPRIL [Lotrel 10-20 MG] 1 cap PO 1200 allopurinoL [Zyloprim] 100 mg PO 1200 Simvastatin [Zocor] 80 mg PO HS glipiZIDE [Glucotrol] 5 mg PO 1200 Metoprolol Succinate [Toprol XL] 50 mg PO 1200 Torsemide [Demadex] 5 mg PO 1200 Latanoprost Ophth [Xalatan 0.005%] 1 drop BOTH EYES DAILY Discharge Medication List Simvastatin [Zocor] 80 mg PO HS 10/09/20 [History] allopurinoL [Zyloprim] 100 mg PO 1200 10/09/20 [History] amLODIPine BESYLATE/BENAZEPRIL [Lotrel 10-20 MG] 1 cap PO 1200 10/09/20 [Hi story] cloNIDine HCL [Catapres] 0.1 mg PO TID 10/09/20 [History] Latanoprost Ophth [Xalatan 0.005%] 1 drop BOTH EYES DAILY 02/22/21 [History] glipiZIDE [Glucotrol] 5 mg PO 1200 02/22/21 [History] Metoprolol Succinate [Toprol XL] 50 mg PO 1200 05/21/22 [History] Torsemide [Demadex] 5 mg PO 1200 05/21/22 [History] Aspirin [Adult Low Dose Aspirin EC] 81 mg PO BID #60 tab 05/29/22 [Rx] Docusate [Colace] 100 mg PO DAILY #30 capsule 05/29/22 [Rx] HYDROcodone/APAP 7.5-325MG [Geronimo 7.5] 1 each PO Q6HR PRN #28 tab 05/29/22 [Rx] Follow up Appointment(s)/Referral(s): Ney Faith, GABE [PHYSICIAN RF TEST TECHNICIAN] - 06/12/22 Patient Instructions/Handouts: Total Hip Replacement (DC) Activity/Diet/Wound Care/Special Instructions: Orthopedic Discharge Instructions: 1. Wound care and infection precautions, [keep incision dry and covered while showering], no lotions, creams, moisturizers. No soaking, pools, hot tubs. Do not scrub over incision. 2. Weight-bear [as tolerated] with walker / cane until follow-up. 3. Ice and elevate when necessary. Do not exceed 20 minutes per hour with ice pack. 4. Utilize compression sleeve until seen at first follow up appointment. 5. Pain meds and anticoagulants per prescription. 6. Pain medication has potential to cause constipation. Increase oral fluid and fiber intake. Contact primary care provider if you have not had a bowel movement within 48 hours after discharge. 7. No anti-inflammatory medication until discussed at first post operative visit, this including Motrin, Aleve, Mobic, Diclofenac. 8. Follow up in office at 2 weeks postop with Mumtaz Curiel PA-C/Ney Faith PA-C 9. Follow up with your primary care doctor 7-10 days after discharge. 10. Contact [facility] with any questions, . Hip precautions: 1. Avoid sitting in a low chair 2. No crossing her legs 3. Avoid sleeping on the affected side Discharge Disposition: HOME WITH HOME HEALTH SERVICES
[2022-05-29] MEDS: allopurinoL 100 MG TAB PO SCH (12:58)
[2022-05-29] MEDS: lisinopriL 20 MG TAB PO SCH (12:59)
[2022-05-29] MEDS: amLODIPine 10 MG TAB PO SCH (12:59)
[2022-05-29] MEDS: glipiZIDE 5 MG TAB PO SCH (12:59)
[2022-05-29] MEDS: METOPROLOL SUCCINATE (ER) 50 MG TAB.ER.24H PO SCH (13:00)
[2022-05-29] MEDS: TORSEMIDE 20 MG TAB PO SCH (13:08)
[2022-05-29 13:18] VITALS: BP 108/57; PULSE 78; TEMP 98.4
--- NOTE | 2022-05-29 15:32 | P.PN ---
Subjective Progress Note Date: 05/29/22 This is a 76-year-old male who was recently admitted under orthopedic services for progressive right hip pain that had been worsening and recently causing increased difficulty in ambulation and continued pain with significant pain during weightbearing activities. Medical management consulted for low platelets and patient is scheduled tentatively for surgery today. Patient was evaluated by hematology/oncology and platelets were 67. Patient received platelets and plan for surgery. Patient is currently afebrile denies any chest pain or shortness of breath. Patient is currently nothing by mouth for the procedure and recommend to continue monitoring Accu-Cheks before meals and at bedtime and continue with sliding scale and close monitoring of blood sugars. Platelets today are 82. 05/29/2022 Patient is seen in follow-up status post total right hip arthroplasty with lateral approach and being closely monitored. Patient plans on being discharged by orthopedics today. Platelets improved to 104 and will be continued on aspirin 81 mg twice a day and follow-up with Dr. Connolly in the outpatient setting hematology. Prescription provided for follow-up labs to monitor platelet level. Also with diabetes recommending resuming home medications and monitoring Accu- Cheks before meals and at bedtime. Other labs reviewed from today and within normal limits. Patient is afebrile and denies any chest pain or shortness of breath. Patient would like to go home today. Patient was able to work with physical therapy and doing relatively well. Patient has support at the home and will be returning home. Review of systems: Constitutional: no reports of fatigue, fever, or chills Cardiovascular: No reports of chest pain or palpitations Respiratory: No reports of shortness of breath or cough GI: No reports of nausea, no reports of of vomiting, no reports of diarrhea : No reports of dysuria or retention Neurovascular: reports of generalized weakness and right hip pain, but manageable All medications have been reviewed PHYSICAL EXAMINATION: GENERAL: The patient is alert and oriented x4, well-developed, well-nourished HEENT: Pupils are round and equally reacting to light. EOMI. no scleral icterus. No conjunctival pallor. Normocephalic, atraumatic. No pharyngeal erythema. No thyromegaly. CARDIOVASCULAR: S1 and S2 muffled PULMONARY: diminished breath sounds bilaterally with no wheezing or rhonchi noted. ABDOMEN: soft. Nontender on exam. obese. non-distended, normoactive bowel sounds. No palpable organomegaly. MUSCULOSKELETAL: No joint swelling or deformity. EXTREMITIES: No cyanosis, clubbing, or pedal edema. Right hip surgical site is dry and intactNEUROLOGICAL: Gross neurological examination did not reveal any focal deficits. Diffuse weakness SKIN: No rashes. Assessment: Severe osteoarthrosis of the right hip Diabetes mellitus type 2 History of thrombocytopenia Hypertension Multiple medical issues GI prophylaxis DVT prophylaxis Full code Plan: Recommend to continue with current medications and management with orthopedic services. Patient platelets morning are 104 and okay for anticoagulation and will continue on double dose of aspirin 81 mg daily and will be following up with hematology in the outpatient setting for further workup. Patient reports he has an appointment and has not been seen in the office yet. Recommend follow-up labs for close monitoring of latelet count and a prescription was provided on discharge . Encouraged the patient to continue to monitor Accu- Cheks before meals and at bedtime and keep a diary for primary care follow-up . Due to multiple complex medical issues, prognosis is guarded. We will continue to monitor and follow along closely with orthopedics during hospitalization. Recommend close hematology follow-up after discharge as well. Thank you for this consultation. Patient anticipates discharge today. The impression and plan of care has been dictated by Angelica De, nurse practitioner as directed. Dr. Juan Jose MD I have performed a history and examination and MDM of this patient, discussed the same with the dictator, and agree with the dictator's assessment and plan as written ,documented as a scribe. Based on total visit time, I have performed more than 50% of the visit. Any additional findings or plans will be noted. Objective - Vital Signs Vital signs: Vital Signs Temp 98.2 F 05/29/22 07:50 Pulse 71 05/29/22 07:50 Resp 18 05/29/22 08:00 BP 171/71 05/29/22 07:50 Pulse Ox 96 05/29/22 07:53 FiO2 Intake & Output 05/28/22 05/29/22 05/29/22 18:59 06:59 18:59 Intake Total 1197 Output Total 900 450 Balance 297 -450 Intake: IV 850 Blood Product 347 Platelet Pheresis Pas 347 Psoralen Unit [id number] Output: Urine 750 450 Estimated Blood Loss 150 Other: Voiding Method Toilet Toilet Toilet Urinal Urinal Urinal # Voids 1 # Bowel Movements 0 - Labs CBC & Chem 7: 05/29/22 06:15 05/29/22 06:15 Labs: Abnormal Lab Results - Last 24 Hours (Table) 05/28/22 05/28/22 05/29/22 Range/Units 06:43 21:09 06:15 BUN 22 H (9-20) mg/dL Glucose 126 H 121 H (70-110) mg/dL POC Glucose (mg/dL) 121 H (70-110) mg/dL 05/29/22 Range/Units 07:04 BUN (9-20) mg/dL Glucose (70-110) mg/dL POC Glucose (mg/dL) 116 H (70-110) mg/dL
== END 2022-05-29 13:58 | disposition home health service (06) | DRG 470 ==
LOC: OR 07:52 → 4SSUR 09:55
PROVIDERS: ADMIT Orthopaedic Surgery; ATTEND Orthopaedic Surgery
PROC: 0SR902A Replacement of Right Hip Joint with Metal on Polyethylene Synthetic Substitute, Uncemented, Open Approach (ICD-10-PCS; principal; 2022-05-28 13:10)
DX: M16.11 Unilateral primary osteoarthritis, right hip (principal); M81.0 Age-related osteoporosis without current pathological fracture; D69.6 Thrombocytopenia, unspecified; E03.9 Hypothyroidism, unspecified; E11.9 Type 2 diabetes mellitus without complications; E78.00 Pure hypercholesterolemia, unspecified; I10 Essential (primary) hypertension; Z79.82 Long term (current) use of aspirin; Z79.84 Long term (current) use of oral hypoglycemic drugs; Z79.899 Other long term (current) drug therapy
CPT/HCPCS: 73501; 80048; 85025; 86850; 86891; 86900; 86901; 94760

== ENCOUNTER 2022-06-06 15:35 | Inpatient (IN) | payer MEDICARE, OTHER ==
[2022-06-06] MEDS ORDERED: FUROSEMIDE 10 MG/ML 4 ML VIAL IV STA (16:04)
--- NOTE | 2022-06-06 16:05 | ED ---
General Adult HPI - General Chief complaint: Extremity Problem,Nontraumatic Stated complaint: Edema Time Seen by Provider: 06/06/22 15:39 Source: patient, EMS, RN notes reviewed Mode of arrival: EMS Limitations: no limitations - History of Present Illness Initial comments: Patient is a pleasant 76-year-old male presenting to the emergency department with concern for ability to take care of himself and leg edema. Patient did have hip replacement surgery done 9 days ago. Patient is still unable to get up on his own. Patient is unable to take care of himself. No chest pain or dyspnea. Patient does have bilateral lower extremity edema. No calf pain. - Related Data Home Medications Medication Instructions Recorded Confirmed Simvastatin [Zocor] 80 mg PO HS 10/09/20 06/06/22 allopurinoL [Zyloprim] 100 mg PO DAILY@1200 10/09/20 06/06/22 amLODIPine BESYLATE/BENAZEPRIL 1 cap PO DAILY@1200 10/09/20 06/06/22 [Lotrel 10-20 MG] cloNIDine HCL [Catapres] 0.1 mg PO TID 10/09/20 06/06/22 Latanoprost Ophth [Xalatan 0.005%] 1 drop BOTH EYES DAILY 02/22/21 06/06/22 glipiZIDE [Glucotrol] 5 mg PO DAILY@1200 02/22/21 06/06/22 Metoprolol Succinate [Toprol XL] 50 mg PO DAILY@1200 05/21/22 06/06/22 Torsemide [Demadex] 5 mg PO DAILY@1200 05/21/22 06/06/22 HYDROcodone/APAP 7.5-325MG [[place] 1 tab PO Q6HR PRN 06/06/22 06/06/22 7.5] Previous Rx's Medication Instructions Recorded Acetaminophen Tab [Tylenol] 650 mg PO Q6HR PRN tab 05/29/22 Aspirin [Adult Low Dose Aspirin EC] 81 mg PO BID #60 tab 05/29/22 Docusate [Colace] 100 mg PO DAILY #30 capsule 05/29/22 Allergies Allergy/AdvReac Type Severity Reaction Status Date / Time No Known Allergies Allergy Verified 06/06/22 16:55 Review of Systems ROS Statement: Those systems with pertinent positive or pertinent negative responses have been documented in the HPI. ROS Other: All systems not noted in ROS Statement are negative. Constitutional: Denies: fever Eyes: Denies: eye pain ENT: Denies: ear pain Respiratory: Denies: cough, dyspnea Cardiovascular: Denies: chest pain Endocrine: Denies: fatigue Gastrointestinal: Denies: abdominal pain Genitourinary: Denies: dysuria Neurological: Reports: as per HPI. Denies: headache, confusion Past Medical History Past Medical History: Cancer, Diabetes Mellitus, Hyperlipidemia, Hypertension, Osteoarthritis (OA), Prostate Disorder Additional Past Medical History / Comment(s): gout, prostate cancer- tx with radiation, hx kidney stone History of Any Multi-Drug Resistant Organisms: None Reported Past Surgical History: Hernia Repair, Orthopedic Surgery Additional Past Surgical History / Comment(s): arthroscopy surya knees, surya cataract/glaucoma surgery Past Anesthesia/Blood Transfusion Reactions: No Reported Reaction Past Psychological History: No Psychological Hx Reported Smoking Status: Never smoker Past Alcohol Use History: None Reported Past Drug Use History: None Reported - Past Family History Brother(s) Family Medical History: Cancer General Exam Limitations: no limitations General appearance: alert, in no apparent distress Head exam: Present: normocephalic Eye exam: Present: normal appearance Neck exam: Present: normal inspection Respiratory exam: Present: normal lung sounds bilaterally Cardiovascular Exam: Present: regular rate, normal rhythm GI/Abdominal exam: Present: soft. Absent: tenderness Extremities exam: Present: pedal edema. Absent: calf tenderness Neurological exam: Present: alert. Absent: motor sensory deficit Psychiatric exam: Present: normal affect, normal mood Skin exam: Present: normal color Course Vital Signs 06/06/22 15:37 Temperature 98.5 F Pulse Rate 92 Respiratory 18 Rate Blood Pressure 140/70 O2 Sat by Pulse 98 Oximetry EKG Findings - EKG Comments: EKG Findings:: Sinus rhythm rate 87. MI 164. QRS 85. QT 315. QTC 360. Normal axis. Normal QRS. Nonspecific T waves. Artifact present. Medical Decision Making - Medical Decision Making Patient evaluated. Patient and family updated. Dr. Gonzalez has been paged for admission, covering Dr. Lopez - Lab Data Result diagrams: 06/06/22 16:35 06/06/22 16:35 Lab Results 06/06/22 06/06/22 06/06/22 Range/Units 16:35 16:35 16:35 WBC 6.8 (3.8-10.6) k/uL RBC 2.89 L (4.30-5.90) m/uL Hgb 8.6 L (13.0-17.5) gm/dL Hct 27.2 L (39.0-53.0) % MCV 94.2 (80.0-100.0) fL MCH 29.6 (25.0-35.0) pg MCHC 31.4 (31.0-37.0) g/dL RDW 14.7 (11.5-15.5) % Plt Count 222 D (150-450) k/uL MPV 7.7 Neutrophils % 75 % Lymphocytes % 13 % Monocytes % 6 % Eosinophils % 2 % Basophils % 0 % Neutrophils # 5.2 (1.3-7.7) k/uL Lymphocytes # 0.9 L (1.0-4.8) k/uL Monocytes # 0.4 (0-1.0) k/uL Eosinophils # 0.1 (0-0.7) k/uL Basophils # 0.0 (0-0.2) k/uL Hypochromasia Slight PT 10.7 (9.0-12.0) sec INR 1.0 (<1.2) APTT 23.2 (22.0-30.0) sec Sodium 134 L (137-145) mmol/L Potassium 5.2 H (3.5-5.1) mmol/L Chloride 103 (98-107) mmol/L Carbon Dioxide 27 (22-30) mmol/L Anion Gap 4 mmol/L BUN 19 (9-20) mg/dL Creatinine 1.00 (0.66-1.25) mg/dL Est GFR (CKD-EPI)AfAm 85 (>60 ml/min/1.73 sqM) Est GFR (CKD-EPI)NonAf 73 (>60 ml/min/1.73 sqM) Glucose 72 L (74-99) mg/dL Calcium 9.4 (8.4-10.2) mg/dL Total Bilirubin 0.6 (0.2-1.3) mg/dL AST 52 (17-59) U/L ALT 33 (4-49) U/L Alkaline Phosphatase 71 (38-126) U/L Troponin I (0.000-0.034) ng/mL NT-Pro-B Natriuret Pep pg/mL Total Protein 6.5 (6.3-8.2) g/dL Albumin 3.4 L (3.5-5.0) g/dL 06/06/22 06/06/22 Range/Units 16:35 16:35 WBC (3.8-10.6) k/uL RBC (4.30-5.90) m/uL Hgb (13.0-17.5) gm/dL Hct (39.0-53.0) % MCV (80.0-100.0) fL MCH (25.0-35.0) pg MCHC (31.0-37.0) g/dL RDW (11.5-15.5) % Plt Count (150-450) k/uL MPV Neutrophils % % Lymphocytes % % Monocytes % % Eosinophils % % Basophils % % Neutrophils # (1.3-7.7) k/uL Lymphocytes # (1.0-4.8) k/uL Monocytes # (0-1.0) k/uL Eosinophils # (0-0.7) k/uL Basophils # (0-0.2) k/uL Hypochromasia PT (9.0-12.0) sec INR (<1.2) APTT (22.0-30.0) sec Sodium (137-145) mmol/L Potassium (3.5-5.1) mmol/L Chloride (98-107) mmol/L Carbon Dioxide (22-30) mmol/L Anion Gap mmol/L BUN (9-20) mg/dL Creatinine (0.66-1.25) mg/dL Est GFR (CKD-EPI)AfAm (>60 ml/min/1.73 sqM) Est GFR (CKD-EPI)NonAf (>60 ml/min/1.73 sqM) Glucose (74-99) mg/dL Calcium (8.4-10.2) mg/dL Total Bilirubin (0.2-1.3) mg/dL AST (17-59) U/L ALT (4-49) U/L Alkaline Phosphatase (38-126) U/L Troponin I <0.012 (0.000-0.034) ng/mL NT-Pro-B Natriuret Pep 53 pg/mL Total Protein (6.3-8.2) g/dL Albumin (3.5-5.0) g/dL - Radiology Data Radiology results: report reviewed (Ultrasound negative for DVT), image reviewed (Chest x-ray shows no acute process) Disposition Clinical Impression: Unable to ambulate, Leg edema Disposition: ADMITTED IP TO THIS HOSP Is patient prescribed a controlled substance at d/c from ED?: No Referrals: January Washburn MD [Primary Care Provider] - 1-2 days Time of Disposition: 18:07
--- NOTE | 2022-06-06 16:26 | XR ---
EXAMINATION TYPE: XR chest 2V DATE OF EXAM: 06/06/2022 COMPARISON: NONE HISTORY: Shortness of breath TECHNIQUE: Frontal and lateral views of the chest are obtained. FINDINGS: Scattered senescent parenchymal changes noted. Hyperinflation compatible with COPD. No evidence for infiltrate. No evidence for atelectasis. Heart size is stable. Mediastinal structures are stable and grossly unremarkable. No evidence for hilar prominence. Degenerative changes dorsal spine. IMPRESSION: 1. No evidence for acute pulmonary disease.
[2022-06-06 16:47] LABS: Basophils % (A) 0 %; Eosinophils # (A) 0.1 k/uL (0-0.7); Eosinophils % (A) 2 %; HCT 27.2 % (39.0-53.0); HGB 8.6 gm/dL (13.0-17.5); Hypochromasia Slight; Lymphocytes # (A) 0.9 k/uL (1.0-4.8); Lymphocytes % (A) 13 %; MCH 29.6 pg (25.0-35.0); MCHC 31.4 g/dL (31.0-37.0); MCV 94.2 fL (80.0-100.0); Mean Platelet Volume 7.7; Monocytes # (A) 0.4 k/uL (0-1.0); Monocytes % (A) 6 %; Neutrophils # (A) 5.2 k/uL (1.3-7.7); Neutrophils % (A) 75 %; RBC 2.89 m/uL (4.30-5.90); RDW 14.7 % (11.5-15.5); WBC 6.8 k/uL (3.8-10.6)
[2022-06-06 16:55] LABS: Albumin 3.4 g/dL (3.5-5.0); Calcium 9.4 mg/dL (8.4-10.2); Platelet Count 222 k/uL (150-450); Total Bilirubin 0.6 mg/dL (0.2-1.3); Total Protein 6.5 g/dL (6.3-8.2)
[2022-06-06 17:04] LABS: Partial Thromboplastin Time 23.2 sec (22.0-30.0); Prothrombin Time 10.7 sec (9.0-12.0)
[2022-06-06 17:09] LABS: Potassium 5.2 mmol/L (3.5-5.1)
--- NOTE | 2022-06-06 17:48 | US ---
EXAMINATION TYPE: US venous doppler duplex LE DATE OF EXAM: 06/06/2022 5:37 PM COMPARISON: NONE CLINICAL HISTORY: edema, post op. SIDE PERFORMED: Bilateral TECHNIQUE: The lower extremity deep venous system is examined utilizing real time linear array sonog katerin with graded compression, doppler sonography and color-flow sonography. VESSELS IMAGED: Common Femoral Vein Deep Femoral Vein Greater Saphenous Vein * Femoral Vein Popliteal Vein Small Saphenous Vein * Proximal Calf Veins, not well seen due to swelling (* superficial vessels) Right Leg: Negative for DVT Left Leg: Negative for DVT Technically difficult study, extensive edema. IMPRESSION: No evidence for DVT at this time.
[2022-06-06] MEDS ORDERED: NALOXONE 0.4 MG/ML 1 ML VIAL IV PRN (18:07)
[2022-06-06 21:09] LABS: Appearance,Urine Clear (Clear); Bilirubin,Urine Negative (Negative); Blood,Urine Negative (Negative); Color,Urine Colorless; Glucose,Urine (UA) Negative (Negative); Ketones,Urine Negative (Negative); Leukocyte Esterase,Urine Negative (Negative); Nitrite,Urine Negative (Negative); Protein,Urine Negative (Negative); Specific Gravity,Urine 1.005 (1.001-1.035); Urobilinogen,Urine <2.0 mg/dL (<2.0)
[2022-06-07] MEDS ORDERED: ACETAMINOPHEN TAB 325 MG TAB PO PRN (00:27)
[2022-06-07 00:35] LABS: Glucose,Whole Blood 102 mg/dL (70-110)
[2022-06-07 08:21] LABS: Glucose,Whole Blood 135 mg/dL (70-110)
[2022-06-07] MEDS: INSULIN ASPART (NovoLOG) 100 UNIT/ML VIAL SQ SCH ×4 (08:24→21:34)
[2022-06-07 08:56] LABS: Basophils # (A) 0.01 X 10*3/uL (0.00-0.10); Basophils % (A) 0.2 %; Eosinophils # (A) 0.11 X 10*3/uL (0.04-0.35); Eosinophils % (A) 1.9 %; HCT 26.9 % (39.6-50.0); Immature Grans, Automated 0.7 %; Lymphocytes # (A) 1.16 X 10*3/uL (0.90-5.00); Lymphocytes % (A) 20.2 %; MCH 28.3 pg (27.0-32.0); MCHC 29.7 g/dL (32.0-37.0); MCV 95.1 fL (80.0-97.0); Mean Platelet Volume 9.6 fL (9.5-12.2); Monocytes # (A) 0.54 X 10*3/uL (0.20-1.00); Monocytes % (A) 9.4 %; NRBC Per 100 WBC 0 /100 WBCS (0.0-0.0); Neutrophils # (A) 3.89 X 10*3/uL (1.80-7.70); Neutrophils % (A) 67.6 %; Platelet Count 218 X 10*3/uL (140-440); RBC 2.83 X 10*6/uL (4.40-5.60); WBC 5.75 X 10*3/uL (4.50-10.00)
[2022-06-07 09:22] LABS: ALT 37 U/L (10-49); AST 36 U/L (14-35); African American GFR (CKD) 77.4 (60.0-200.0); Albumin 3.3 g/dL (3.8-4.9); Albumin/Globulin Ratio 1.27 (1.60-3.17); Alkaline Phosphatase 79 U/L (41-126); BUN/Creat Ratio 15.74 Ratio (12.00-20.00); Bilirubin, Conjugated <0.20 mg/dL (0.20-0.40); Calcium 9.4 mg/dL (8.7-10.3); Carbon Dioxide 28.9 mmol/L (20.0-27.5); Chloride 103 mmol/L (96-109); Globulin 2.6 g/dL (1.6-3.3); Glucose 99 mg/dL (70-110); Magnesium 2.4 mg/dL (1.5-2.4); Non-African American GFR(CKD) 66.8 (60.0-200.0); Potassium 4.5 mmol/L (3.5-5.5); Sodium 141 mmol/L (135-145); Total Protein 5.9 g/dL (6.2-8.2)
[2022-06-07] MEDS: ASPIRIN 81 MG PO SCH ×2 (10:02→21:35)
[2022-06-07] MEDS: LATANOPROST 0.005% OPHTH DROPS 2.5 ML BTL BOTH EYES SCH (10:03)
[2022-06-07] MEDS: HEPARIN SODIUM,PORCINE/PF 5,000 UNIT/0.5 ML SYRINGE SQ SCH ×2 (10:03→21:35)
[2022-06-07] MEDS: DOCUSATE 100 MG CAP PO SCH (10:03)
[2022-06-07] MEDS ORDERED: HYDROcodone/APAP 5-325MG 1 EACH TAB PO PRN (10:55)
--- NOTE | 2022-06-07 11:12 | P.CNOR ---
History of Present Illness - [facility] Consult date: 06/07/22 Requesting physician: Padilla Barrios Consult reason: other History of present illness: History of Presenting Illness Patient is a pleasant 76-year-old male who presented to the ER regarding bilateral lower extremity edema and inability to take care of himself at home. Patient had a total right hip arthroplasty on 05/28/[address] Barrios. Patient was discharged home with his spouse and home care. He states that he was unable to get up and ambulate with assistance from his , he states that it was too much for her. Speaking with day shift RN today she states that patient was not taking medications at home which included his cardiac meds and Lasix because he did not want to use the restroom frequently because he was unable to get up. When entering the patient room, he was sitting up in chair and stated he had just gotten out of the shower. Surgical site dressing was removed, incision is clean dry and intact. Patient states that his pain is managed at this time on current regimen. He states that all needs are met at this time. Patient states he would like to go to rehab. Patient denies any fever or chills, nausea/vomiting, or chest pain. Review of Systems Pertinent postivites and negatives as dicussed in HPI, a complete review of systems was performed and all other sysytems are negative. Physical Examination General: The patient is awake and alert, in no acute distress Skin: Skin is warm and dry with no obvious rashes or lesions. Hairy patches absent, no dorsal skin dimples, no cafe au lait spots, and no surgical incision s. Eye: Pupils are equal, round and reactive to light, extra-ocular movements are intact; there is normal conjunctiva bilaterally. Neck: The neck is supple, there is no tenderness and ROM intact. Cardiovascular: There is a regular rate and rhythm. No murmur, rub or gallop is appreciated. BLE edema noted. Respiratory: Lungs are clear to auscultation, respirations are non-labored, breath sounds are equal. Gastrointestinal: Soft, non-distended, non-tender abdomen. Back: There is no tenderness to palpation in the midline, paralumbar, parathoracic or buttocks region. There is no obvious deformity. Musculoskeletal: ROM limited secondary to pain and stiffness from surgical procedure. Shoulder abduction 5/5, elbow flexors 5/5, wrist dorsiflexors 5/5. finger abductor 5/5, program arranger 5/5, hip flexor 4/5, knee flexor 4/5, ankle dorsiflexor 4/5, ankle plantarflexion 4/5 and extensor hallucis 4/5. Neurological: CN 2-12 intact. There are no obvious motor or sensory deficits. Movement and coordination equal and intact. Sensory exam to light touch intact C5-T1 and intact from L2-S1. Reflexes 2/4 in bilateral upper and lower extremities. Negative Hoffmans, babinski, and clonus signs. Psychiatric: Cooperative, appropriate mood & affect, normal judgment. Assessment and Plan 1. s/p total right hip arthroplasty, post-op Day 10 2. Bilateral lower extremity edema 3. Inability to care for self Plan: -Appreciate wine consultant and team management. -Activity: Ambulate QID, OOB all meals, up and about, limit lifting bending twisting. Use walker or cane if needed for stability. -Daily PT/OT, increase ambulation strength and balance. -Pain control: Adequate at this time -Meds: reviewed -GI ppx: Colace -DVT PPX: Lovenox -Hygiene: May shower. Maintain dressing clean and dry. -Encourage IS 10x/hr -Dispo: Anticipate discharge to rehab when medically stable. *I reviewed and discussed this case with my attending Dr. Barrios, whom has reviewed this chart and films and is in agreement with assessment and plan of care as outlined above. I have personally seen and examined the patient, performed the documentation and the assessment and plan as written. Number of minutes spent on the visit: 20m. Past Medical History Past Medical History: Cancer, Diabetes Mellitus, Hyperlipidemia, Hypertension, Osteoarthritis (OA), Prostate Disorder Additional Past Medical History / Comment(s): gout, prostate cancer- tx with radiation, hx kidney stone History of Any Multi-Drug Resistant Organisms: None Reported Past Surgical History: Hernia Repair, Orthopedic Surgery Additional Past Surgical History / Comment(s): arthroscopy surya knees, Right hip replacement, surya cataract/glaucoma surgery Past Anesthesia/Blood Transfusion Reactions: No Reported Reaction Smoking Status: Never smoker - Past Family History Brother(s) Family Medical History: Cancer Medications and Allergies Home Medications Medication Instructions Recorded Confirmed Type Simvastatin [Zocor] 80 mg PO HS 10/09/20 06/06/22 History allopurinoL [Zyloprim] 100 mg PO DAILY@1200 10/09/20 06/06/22 History amLODIPine BESYLATE/BENAZEPRIL 1 cap PO DAILY@1200 10/09/20 06/06/22 History [Lotrel 10-20 MG] cloNIDine HCL [Catapres] 0.1 mg PO TID 10/09/20 06/06/22 History Latanoprost Ophth [Xalatan 0.005%] 1 drop BOTH EYES DAILY 02/22/21 06/06/22 History glipiZIDE [Glucotrol] 5 mg PO DAILY@1200 02/22/21 06/06/22 History Metoprolol Succinate [Toprol XL] 50 mg PO DAILY@1200 05/21/22 06/06/22 History Torsemide [Demadex] 5 mg PO DAILY@1200 05/21/22 06/06/22 History Acetaminophen Tab [Tylenol] 650 mg PO Q6HR PRN tab 05/29/22 06/06/22 Rx Aspirin [Adult Low Dose Aspirin EC] 81 mg PO BID #60 tab 05/29/22 06/06/22 Rx Docusate [Colace] 100 mg PO DAILY #30 capsule 05/29/22 06/06/22 Rx HYDROcodone/APAP 7.5-325MG [[place] 1 tab PO Q6HR PRN 06/06/22 06/06/22 History 7.5] Allergies Allergy/AdvReac Type Severity Reaction Status Date / Time No Known Allergies Allergy Verified 06/06/22 16:55 Results - Labs Labs: Abnormal Lab Results - Last 24 Hours (Table) 06/06/22 06/06/22 06/07/22 Range/Units 16:35 16:35 06:29 RBC 2.89 L 2.83 L (4.30-5.90) m/uL Hgb 8.6 L 8.0 L (13.0-17.5) gm/dL Hct 27.2 L 26.9 L (39.0-53.0) % MCHC 29.7 L (32.0-37.0) g/dL RDW 15.0 H (11.5-14.5) % Lymphocytes # 0.9 L (1.0-4.8) k/uL Sodium 134 L (137-145) mmol/L Potassium 5.2 H (3.5-5.1) mmol/L Carbon Dioxide (20.0-27.5) mmol/L Anion Gap (10.00-18.00) mmol/L Glucose 72 L (74-99) mg/dL POC Glucose (mg/dL) (70-110) mg/dL Conjugated Bilirubin (0.20-0.40) mg/dL AST (14-35) U/L Total Protein (6.2-8.2) g/dL Albumin 3.4 L (3.5-5.0) g/dL Albumin/Globulin Ratio (1.60-3.17) g/dL Vitamin B12 (200.0-944.0) pg/mL Procalcitonin (0.02-0.09) ng/mL 06/07/22 06/07/22 06/07/22 Range/Units 06:29 06:29 08:20 RBC (4.30-5.90) m/uL Hgb (13.0-17.5) gm/dL Hct (39.0-53.0) % MCHC (32.0-37.0) g/dL RDW (11.5-14.5) % Lymphocytes # (1.0-4.8) k/uL Sodium (137-145) mmol/L Potassium (3.5-5.1) mmol/L Carbon Dioxide 28.9 H (20.0-27.5) mmol/L Anion Gap 9.60 L (10.00-18.00) mmol/L Glucose (74-99) mg/dL POC Glucose (mg/dL) 135 H (70-110) mg/dL Conjugated Bilirubin <0.20 L (0.20-0.40) mg/dL AST 36 H (14-35) U/L Total Protein 5.9 L (6.2-8.2) g/dL Albumin 3.3 L (3.5-5.0) g/dL Albumin/Globulin Ratio 1.27 L (1.60-3.17) g/dL Vitamin B12 1891.0 H (200.0-944.0) pg/mL Procalcitonin 0.22 H (0.02-0.09) ng/mL H & H 06/06/22 06/07/22 Range/Units 16:35 06:29 Hgb 8.6 L 8.0 L (13.0-17.5) gm/dL Hct 27.2 L 26.9 L (39.0-53.0) % Coagulation 06/06/22 Range/Units 16:35 INR 1.0 (<1.2) Result Diagrams: 06/07/22 06:29 06/07/22 06:29
[2022-06-07 11:28] LABS: Glucose,Whole Blood 159 mg/dL (70-110)
--- NOTE | 2022-06-07 11:37 | P.HPIM ---
History of Present Illness This is a pleasant 76 years old -[place] male with past medical history of Diabetes Mellitus, Hyperlipidemia, Hypertension, Osteoarthritis (OA), gout, prostate cancer status post radiotherapy, history of kidney stone. Patient was in the hospital 05/27-05/29 for right hip arthroplasty. Presents because of weakness Patient presents because of inability to take care of himself, his is 86 years old and she has difficulty helping him getting up from sitting position. Patient at baseline walks short distances using a cane, he has history of severe osteoarthritis and he underwent right total hip arthroplasty about 10 days ago, after the procedure and surgery he was getting more difficult to move around and he needed the help of his since he came out of the hospital and to his home. Yesterday his legs were more swollen and his thought is better for him to go to rehab so I decided to come to the emergency room. Patient denies back pain, no numbness or tingling, but he has difficulty moving or bending his lower extremity joints, including both legs symmetrically, he can hardly November of the bed, at the same time they are significantly swollen with bilateral pitting leg edema but no induration. No erythema or evidence of cellulitis. No open wound. Also patient denies chest pain or shortness of breath or coughing. No abdominal pain Patient denies dysuria but complains from increased frequency. Patient also constipated and did not have bowel movement for 2 days, sometimes it was control of his bowel when he P's. He denies headache or dizziness, no blurred vision or slurred speech. No upper extremity weakness or numbness. He denies smoking, alcohol or illicit tracts On admission his glucose was slightly low at 72 Urinalysis is negative. Vitals are stable Labs showing no obesity normal 6.8, hemoglobin 8.6. Rest of CBC is unremarkable. Karen Feiner is unremarkable. Creatinine 1.0, potassium 5.2, sodium 134, glucose low at 72. We checked glucose 102. AST and ALT and rest of liver e nzymes are normal. ProBNP 53, troponin negative. EKG showing normal sinus rhythm at [address]-T changes Chest x-ray: No acute process Venous Doppler of lower extremity: No DVT, excessive erythema In emergency room patient received iv Lasix 40 mgx1 Further labs showing elevated B12 1891, folate is more than 20. procalcitonin is mildly elevated at 0.22. TSH is normal Review of Systems Review of systems CONSTITUTIONAL: No fever, no malaise, no fatigue. HEENT: No recent visual problems or hearing problems. Denied any sore throat. CARDIOVASCULAR: No orthopnea, PND, no palpitations, no syncope. PULMONARY: No shortness of breath, no cough, no hemoptysis. GASTROINTESTINAL: No diarrhea, no nausea, no vomiting, no abdominal pain. Norm oactive bowel sounds. NEUROLOGICAL: No headaches, no numbness. HEMATOLOGICAL: Denies any bleeding or petechiae. GENITOURINARY: Denies any burning micturition, frequency, or urgency. MUSCULOSKELETAL/RHEUMATOLOGICAL: Denies any joint pain, swelling, or any muscle pain. ENDOCRINE: Denies any polyuria or polydipsia. Past Medical History Past Medical History: Cancer, Diabetes Mellitus, Hyperlipidemia, Hypertension, Osteoarthritis (OA), Prostate Disorder Additional Past Medical History / Comment(s): gout, prostate cancer- tx with radiation, hx kidney stone History of Any Multi-Drug Resistant Organisms: None Reported Past Surgical History: Hernia Repair, Orthopedic Surgery Additional Past Surgical History / Comment(s): arthroscopy surya knees, Right hip replacement, surya cataract/glaucoma surgery Past Anesthesia/Blood Transfusion Reactions: No Reported Reaction Smoking Status: Never smoker - Past Family History Brother(s) Family Medical History: Cancer Medications and Allergies Home Medications Medication Instructions Recorded Confirmed Type Simvastatin [Zocor] 80 mg PO HS 10/09/20 06/06/22 History allopurinoL [Zyloprim] 100 mg PO DAILY@119910/09/20 06/06/22 History amLODIPine BESYLATE/BENAZEPRIL 1 cap PO DAILY@119910/09/20 06/06/22 History [Lotrel 10-20 MG] cloNIDine HCL [Catapres] 0.1 mg PO TID 10/09/20 06/06/22 History Latanoprost Ophth [Xalatan 0.005%] 1 drop BOTH EYES DAILY 02/22/21 06/06/22 History glipiZIDE [Glucotrol] 5 mg PO DAILY@1200 02/22/21 06/06/22 History Metoprolol Succinate [Toprol XL] 50 mg PO DAILY@119905/21/22 06/06/22 History Torsemide [Demadex] 5 mg PO DAILY@1200 05/21/22 06/06/22 History Acetaminophen Tab [Tylenol] 650 mg PO Q6HR PRN tab 05/29/22 06/06/22 Rx Aspirin [Adult Low Dose Aspirin EC] 81 mg PO BID #60 tab 05/29/22 06/06/22 Rx Docusate [Colace] 100 mg PO DAILY #30 capsule 05/29/22 06/06/22 Rx HYDROcodone/APAP 7.5-325MG [[place] 1 tab PO Q6HR PRN 06/06/22 06/06/22 History 7.5] Allergies Allergy/AdvReac Type Severity Reaction Status Date / Time No Known Allergies Allergy Verified 06/06/22 16:55 Physical Exam Vitals: Vital Signs Temp Pulse Pulse Resp BP BP Pulse Ox 06/07/22 08:00 98.5 F 108 H 18 184/72 97 06/07/22 02:00 98.4 F 98 16 163/73 95 06/06/22 21:40 98.7 F 100 16 159/73 99 06/06/22 21:11 81 16 137/71 97 06/06/22 18:47 94 16 139/63 100 06/06/22 15:37 98.5 F 92 18 140/70 98 Intake and Output 06/06/22 06/07/22 06/07/22 22:59 06:59 14:59 Output Total 1050 400 Balance -1050 -400 Output: Urine 1050 400 Other: Voiding Method Urinal # Voids 1 Weight 108.862 kg GENERAL: The patient is alert and oriented x3, not in any acute distress. Well developed, well nourished. HEENT: Pupils are round and equally reacting to light. EOMI. No scleral icterus. No conjunctival pallor. Normocephalic, atraumatic. No pharyngeal erythema. No thyromegaly. CARDIOVASCULAR: S1 and S2 present. No murmurs, rubs, or gallops. PULMONARY: Chest is clear to auscultation, no wheezing or crackles. ABDOMEN: Soft, nontender, nondistended, normoactive bowel sounds. No palpable or ganomegaly. MUSCULOSKELETAL: No joint swelling or deformity. -EXTREMITIES: No cyanosis, clubbing, . Bilateral patellar leg edema, 2-3+ -NEUROLOGICAL: Gross neurological examination did not reveal any focal deficits. Cranial nerves are grossly intact. Both lower extremities are weak, he can bar kyleigh lift them off the date, no sensory loss or tingling. Meningeal signs are absent SKIN: No rashes. no petechiae. Results CBC & Chem 7: 06/07/22 06:29 06/07/22 06:29 Labs: Abnormal Lab Results - Last 24 Hours (Table) 06/06/22 06/06/22 06/07/22 Range/Units 16:35 16:35 06:29 RBC 2.89 L 2.83 L (4.30-5.90) m/uL Hgb 8.6 L 8.0 L (13.0-17.5) gm/dL Hct 27.2 L 26.9 L (39.0-53.0) % MCHC 29.7 L (32.0-37.0) g/dL RDW 15.0 H (11.5-14.5) % Lymphocytes # 0.9 L (1.0-4.8) k/uL Sodium 134 L (137-145) mmol/L Potassium 5.2 H (3.5-5.1) mmol/L Carbon Dioxide (20.0-27.5) mmol/L Anion Gap (10.00-18.00) mmol/L Glucose 72 L (74-99) mg/dL POC Glucose (mg/dL) (70-110) mg/dL Conjugated Bilirubin (0.20-0.40) mg/dL AST (14-35) U/L Total Protein (6.2-8.2) g/dL Albumin 3.4 L (3.5-5.0) g/dL Albumin/Globulin Ratio (1.60-3.17) g/dL Vitamin B12 (200.0-944.0) pg/mL Procalcitonin (0.02-0.09) ng/mL 06/07/22 06/07/22 06/07/22 Range/Units 06: 06:29 08:20 RBC (4.30-5.90) m/uL Hgb (13.0-17.5) gm/dL Hct (39.0-53.0) % MCHC (32.0-37.0) g/dL RDW (11.5-14.5) % Lymphocytes # (1.0-4.8) k/uL Sodium (137-145) mmol/L Potassium (3.5-5.1) mmol/L Carbon Dioxide 28.9 H (20.0-27.5) mmol/L Anion Gap 9.60 L (10.00-18.00) mmol/L Glucose (74-99) mg/dL POC Glucose (mg/dL) 135 H (70-110) mg/dL Conjugated Bilirubin <0.20 L (0.20-0.40) mg/dL AST 36 H (14-35) U/L Total Protein 5.9 L (6.2-8.2) g/dL Albumin 3.3 L (3.5-5.0) g/dL Albumin/Globulin Ratio 1.27 L (1.60-3.17) g/dL Vitamin B12 1891.0 H (200.0-944.0) pg/mL Procalcitonin 0.22 H (0.02-0.09) ng/mL Thrombosis Risk Factor Assmnt - Choose All That Apply Each Factor Represents 1 point: History of prior major surgery (<1month), Medical pt on bed rest, Obesity (BMI >25), Swollen legs (current) Other Risk Factors: Yes Each Risk Factor Represents 3 Points: Age 75 years or older Each Risk Factor Represents 5 Points: Elective major lower extremity arthoplasty Thrombosis Risk Factor Assessment Total Risk Factor Score: 12 Thrombosis Risk Factor Assessment Level: High Risk Assessment and Plan Assessment: Bilateral lower extremity weakness and inability to ambulate, but worse since la st surgery for his hip replacement Bilateral lower extremity edema Recent right hip replacement surgery for severe osteoarthritis Diabetes mellitus , with hyperglycemia on admission Hypertension Hyperlipidemia History of prostatic cancer status post radiotherapy History of gout Plan: This is a pleasant 76 years old male who presents with weakness, recent hip surgery and significant leg edema Continue with Lasix Follow up with orthopedic team Hold the glipizide and continue with insulin sliding scale check hemoglobin A1c Continue with metoprolol, clonidine on hold and may be resumed if needed. Check echocardiogram, check lower extremity ultrasound Labs and medication were reviewed.. Continue same treatment. Continue with symptomatic treatment. Resume home medication. Monitor lytes and vitals. DVT and GI prophylaxis. Further recommendations as per clinical course of the patient DVT prophylaxis: Subcutaneous heparin GI Prophylaxis: Pepcid PT/OT: Pending Prognosis is guarded
[2022-06-07] MEDS: allopurinoL 100 MG TAB PO SCH (11:57)
[2022-06-07] MEDS: METOPROLOL SUCCINATE (ER) 50 MG TAB.ER.24H PO SCH (11:57)
--- NOTE | 2022-06-07 12:19 | P.CNNES ---
History of Present Illness Consult date: 06/07/22 Reason for Consult: leg weakness History of Present Illness: The patient is a 76-year-old -K[place] male who is seen in neurologic consultation on June 07, 2022, via teleneurology. The patient is being seen because of bilateral lower extremity weakness. Patient reportedly had a right hip replacement surgery done recently. He was discharged home. Apparently the patient has been having increasing edema of his bilateral lower extremities, right greater than left. He is been having difficulty getting up from bed and getting up from a seated position. Patient does state that he is able to walk with the assistance of walker. He says he has difficulty moving his legs to the edge of the bed, so as to get out of bed. He reports that his is having difficulty caring for him. He apparently is being seen by home physical therapy. Because of the marked increase in edema and weakness, it was recommended that he come into the hospital. The patient denies numbness and tingling in his lower extremities. He denies weakness in his arms. The patient denies pain in his legs. He does continue to have some tenderness of his right hip. The patient denies headache, visual changes, difficulty with speech, difficulty swallowing. The patient denies any symptoms, consistent with stroke. The patient denies loss of bowel and bladder control. Review of Systems Negative, except for that noted in history of chief complaint Past Medical History Past Medical History: Cancer, Diabetes Mellitus, Hyperlipidemia, Hypertension, Osteoarthritis (OA), Prostate Disorder Additional Past Medical History / Comment(s): gout, prostate cancer- tx with radiation, hx kidney stone History of Any Multi-Drug Resistant Organisms: None Reported Past Surgical History: Hernia Repair, Orthopedic Surgery Additional Past Surgical History / Comment(s): arthroscopy surya knees, Right hip replacement, surya cataract/glaucoma surgery Past Anesthesia/Blood Transfusion Reactions: No Reported Reaction Smoking Status: Never smoker - Past Family History Brother(s) Family Medical History: Cancer Medications and Allergies Home Medications Medication Instructions Recorded Confirmed Type Simvastatin [Zocor] 80 mg PO HS 10/09/20 06/06/22 History allopurinoL [Zyloprim] 100 mg PO DAILY@1200 10/09/20 06/06/22 History amLODIPine BESYLATE/BENAZEPRIL 1 cap PO DAILY@1200 10/09/20 06/06/22 History [Lotrel 10-20 MG] cloNIDine HCL [Catapres] 0.1 mg PO TID 10/09/20 06/06/22 History Latanoprost Ophth [Xalatan 0.005%] 1 drop BOTH EYES DAILY 02/22/21 06/06/22 History glipiZIDE [Glucotrol] 5 mg PO DAILY@1200 02/22/21 06/06/22 History Metoprolol Succinate [Toprol XL] 50 mg PO DAILY@119905/21/22 06/06/22 History Torsemide [Demadex] 5 mg PO DAILY@119905/21/22 06/06/22 History Acetaminophen Tab [Tylenol] 650 mg PO Q6HR PRN tab 05/29/22 06/06/22 Rx Aspirin [Adult Low Dose Aspirin EC] 81 mg PO BID #60 tab 05/29/22 06/06/22 Rx Docusate [Colace] 100 mg PO DAILY #30 capsule 05/29/22 06/06/22 Rx HYDROcodone/APAP 7.5-325MG [[place] 1 tab PO Q6HR PRN 06/06/22 06/06/22 History 7.5] Allergies Allergy/AdvReac Type Severity Reaction Status Date / Time No Known Allergies Allergy Verified 06/06/22 16:55 Physical Examination - Vital Signs Vital Signs: Vital Signs Temp Pulse Pulse Resp BP BP Pulse Ox 06/07/22 08:00 98.5 F 108 H 18 184/72 97 06/07/22 02:00 98.4 F 98 16 163/73 95 06/06/22 21:40 98.7 F 100 16 159/73 99 06/06/22 21:11 81 16 137/71 97 06/06/22 18:47 94 16 139/63 100 06/06/22 15:37 98.5 F 92 18 140/70 98 Intake and Output 06/06/22 06/07/22 06/07/22 22:59 06:59 14:59 Output Total 1050 400 Balance -1050 -400 Output: Urine 1050 400 Other: Voiding Method Urinal # Voids 1 Weight 108.862 kg Gen.: The patient is reclining in the bed. He is obese. He is in no acute distress. HEENT: Head is atraumatic, normocephalic. Fundus not visualized. There is no scleral icterus. Mucous members are moist. Neck: Supple without carotid bruits Heart: Rate and rhythm Extremities: Bilateral lower extremity, marked pitting edema, right greater than left Neurologic examination Mental status: The patient is awake, alert and oriented 3. His speech is clear. There is no dysarthria or aphasia. Cranial nerves: Pupils are equal at 2 mm and reactive. Visual segal are full to confrontation. Extraocular movements are intact. There is no nystagmus. Facial sensation is intact. There is no facial asymmetry. Hearing is grossly intact. Uvula and palate are midline. Shoulder shrug is symmetric. Tongue protrudes midline. Motor: Bilateral upper extremity strength is 5/5. Bilateral ankle plantar and dorsiflexors 5/5. Right hip flexor 2-3/5. Left hip flexor 3-/5. Sensation: Intact to light touch. There is no extinction with double simultaneous stimulation. Coordination: Finger to nose and rapid alternating movements are intact. Deep tendon reflexes: 1+/4+ in the bilateral upper extremities. Lower extremity reflexes are absent. Gait: Not assessed Results - Laboratory Findings CBC and BMP: 06/07/22 06:29 06/07/22 06:29 Abnormal Lab Findings: Abnormal Labs 06/06/22 06/06/22 06/07/22 16:35 16:35 06:29 RBC 2.89 L 2.83 L Hgb 8.6 L 8.0 L Hct 27.2 L 26.9 L MCHC 29.7 L RDW 15.0 H Lymphocytes # 0.9 L Sodium 134 L Potassium 5.2 H Carbon Dioxide Anion Gap Glucose 72 L POC Glucose (mg/dL) Conjugated Bilirubin AST Total Protein Albumin 3.4 L Albumin/Globulin Ratio Vitamin B12 Procalcitonin 06/07/22 06/07/22 06/07/22 06:29 06:29 08:20 RBC Hgb Hct MCHC RDW Lymphocytes # Sodium Potassium Carbon Dioxide 28.9 H Anion Gap 9.60 L Glucose POC Glucose (mg/dL) 135 H Conjugated Bilirubin <0.20 L AST 36 H Total Protein 5.9 L Albumin 3.3 L Albumin/Globulin Ratio 1.27 L Vitamin B12 1891.0 H Procalcitonin 0.22 H 06/07/22 11:27 RBC Hgb Hct MCHC RDW Lymphocytes # Sodium Potassium Carbon Dioxide Anion Gap Glucose POC Glucose (mg/dL) 159 H Conjugated Bilirubin AST Total Protein Albumin Albumin/Globulin Ratio Vitamin B12 Procalcitonin Assessment and Plan Assessment: 1. Marked pitting edema, right greater than left involving the bilateral lower extremities. 2. Bilateral lower extremity weakness, secondary to edema and deconditioning. There is no evidence of neurologic etiology for this weakness. Plan: 1. Agree with orthopedic consultation 2. Your medical treatment to reduce edema 3. Continue physical therapy 4. Consider discharge to inpatient rehabilitation facility for further strengthening 5. No further neurologic intervention is needed at this time Time with Patient: Greater than 30 (Spent 40 minutes with patient via telemedicine)
[2022-06-07] MEDS: FUROSEMIDE 10 MG/ML 4 ML VIAL IV SCH ×2 (12:48→21:35)
[2022-06-07 16:39] LABS: Glucose,Whole Blood 126 mg/dL (70-110)
[2022-06-07] MEDS: FAMOTIDINE 20 MG/2 ML VIAL IV SCH ×2 (17:25→21:35)
[2022-06-07 20:15] LABS: Glucose,Whole Blood 138 mg/dL (70-110)
[2022-06-07 20:48] LABS: Glucose,Whole Blood 122 mg/dL (70-110)
[2022-06-08 06:08] LABS: Glucose,Whole Blood 129 mg/dL (70-110)
[2022-06-08 06:55] LABS: Glucose,Whole Blood 121 mg/dL (70-110)
[2022-06-08] MEDS: INSULIN ASPART (NovoLOG) 100 UNIT/ML VIAL SQ SCH ×4 (07:54→21:05)
[2022-06-08] MEDS: DOCUSATE 100 MG CAP PO SCH (08:12)
[2022-06-08] MEDS: HEPARIN SODIUM,PORCINE/PF 5,000 UNIT/0.5 ML SYRINGE SQ SCH ×2 (08:12→21:30)
[2022-06-08] MEDS: ASPIRIN 81 MG PO SCH ×2 (08:12→21:30)
[2022-06-08] MEDS: LATANOPROST 0.005% OPHTH DROPS 2.5 ML BTL BOTH EYES SCH (08:13)
[2022-06-08] MEDS: FAMOTIDINE 20 MG/2 ML VIAL IV SCH (08:22)
[2022-06-08] MEDS: FUROSEMIDE 10 MG/ML 4 ML VIAL IV SCH ×2 (08:22→21:30)
[2022-06-08 09:30] LABS: Magnesium 2.3 mg/dL (1.5-2.4)
[2022-06-08 10:30] LABS: Basophils # (A) 0.02 X 10*3/uL (0.00-0.10); Basophils % (A) 0.4 %; Eosinophils # (A) 0.09 X 10*3/uL (0.04-0.35); Eosinophils % (A) 1.7 %; HCT 26.2 % (39.6-50.0); HGB 7.9 g/dL (13.0-17.0); Immature Grans, Automated 0.4 %; Lymphocytes % (A) 21.1 %; MCH 28.7 pg (27.0-32.0); MCHC 30.2 g/dL (32.0-37.0); MCV 95.3 fL (80.0-97.0); Mean Platelet Volume 9.7 fL (9.5-12.2); Monocytes # (A) 0.64 X 10*3/uL (0.20-1.00); Monocytes % (A) 12.3 %; NRBC Per 100 WBC 0 /100 WBCS (0.0-0.0); Neutrophils # (A) 3.35 X 10*3/uL (1.80-7.70); Neutrophils % (A) 64.1 %; Platelet Count 243 X 10*3/uL (140-440); RBC 2.75 X 10*6/uL (4.40-5.60); RDW 15.1 % (11.5-14.5); WBC 5.22 X 10*3/uL (4.50-10.00)
[2022-06-08 11:25] LABS: Glucose,Whole Blood 109 mg/dL (70-110)
--- NOTE | 2022-06-08 11:34 | CA ---
Transthoracic Echo Report Name: Williams Clements Age: 76 Gender: M : 1945 Exam Date: 06/07/2022 10:44 Exam Location: [facility] Ht (in): 68 Wt (lb): 240 Ordering Physician: Vic Lowe MD Attending/Referring Phys: [id number], Myn[employer]ish Machine Tender Keke Meza, [facility] Procedure CPT: Indications: Leg edema Cardiac Hx: Technical Quality: Good Contrast 1: Total Dose (mL): Contrast 2: Total Dose (mL): MEASUREMENTS (Male / Female) Normal Values 2D ECHO LV Diastolic Diameter PLAX 4.3 cm 4.2 - 5.9 / 3.9 - 5.3 cm LV Systolic Diameter PLAX 3.4 cm IVS Diastolic Thickness 1.4 cm 0.6 - 1.0 / 0.6 - 0.9 cm LVPW Diastolic Thickness 1.6 cm 0.6 - 1.0 / 0.6 - 0.9 cm LV Relative Wall Thickness 0.7 RV Internal Dim ED PLAX 4.3 cm M-MODE Aortic Root Diameter MM 3.0 cm LA Systolic Diameter MM 3.5 cm LA Ao Ratio MM 1.2 MV E Point Septal Separation 0.2 cm AV Cusp Separation MM 2.0 cm DOPPLER MV Area PHT 3.0 cm??? Mitral E Point Velocity 50.4 cm/s Mitral A Point Velocity 94.7 cm/s Mitral E to A Ratio 0.5 MV Deceleration Time 253.7 ms MV E' Velocity 4.2 cm/s Mitral E to MV E' Ratio 11.9 TR Peak Velocity 267.8 cm/s TR Peak Gradient 28.7 mmHg Right Ventricular Systolic Press 33.7 mmHg FINDINGS Left Ventricle Normal left ventricular size, mild wall thickness, systolic function with no obvious regional wall motion abnormalities. Right Ventricle The right ventricle is normal in size and function. Right Atrium The right atrium is normal in size. Left Atrium The left atrium is normal in size. Mitral Valve Structurally normal mitral valve without significant stenosis or prolapse. There is mild mitral regurgitation. Aortic Valve Structurally normal aortic valve without significant sclerosis or stenosis. There is no aortic regurgitation. Tricuspid Valve Structurally normal tricuspid valve without significant stenosis. Pulmonary artery systolic pressure is normal. Pulmonic Valve Structurally normal pulmonic valve without significant stenosis. There is no pulmonic regurgitation. Pericardium Normal pericardium without effusion. Aorta Normal aortic root dimension. CONCLUSIONS Normal LV size and systolic from Previewed by: Dr. Oscar Richards MD (Electronically Signed) Final Date: 08 June 2022 11:33
[2022-06-08 11:50] LABS: ALT 41 U/L (10-49); AST 38 U/L (14-35); African American GFR (CKD) 68.1 (60.0-200.0); Albumin 3.3 g/dL (3.8-4.9); Albumin/Globulin Ratio 1.22 (1.60-3.17); Alkaline Phosphatase 81 U/L (41-126); BUN/Creat Ratio 17.58 Ratio (12.00-20.00); Bilirubin, Conjugated <0.20 mg/dL (0.20-0.40); Blood Urea Nitrogen 21.1 mg/dL (9.0-27.0); Calcium 9.2 mg/dL (8.7-10.3); Chloride 100 mmol/L (96-109); Globulin 2.7 g/dL (1.6-3.3); Glucose 115 mg/dL (70-110); Non-African American GFR(CKD) 58.8 (60.0-200.0); Potassium 4.1 mmol/L (3.5-5.5); Sodium 140 mmol/L (135-145)
[2022-06-08] MEDS: allopurinoL 100 MG TAB PO SCH (12:17)
[2022-06-08] MEDS: METOPROLOL SUCCINATE (ER) 50 MG TAB.ER.24H PO SCH (12:17)
[2022-06-08] MEDS ORDERED: cloNIDine HCL 0.1 MG TAB PO SCH (16:00)
--- NOTE | 2022-06-08 16:01 | P.PN ---
Subjective Progress Note Date: 06/08/22 Principal diagnosis: Inability to ambulate BLE edema Upon entering room, Patient was sitting up in chair. Mr. Clements denies any pain at this time, denies needing any medications for pain management. Patient had just got out from the shower. He is tolerating activity well. He is ambulatory with assistance and walker. At this time his lunch was delivered and states he has been tolerating his diet. Swelling to BLE has slightly improved. Incision is well approximated and is CDI. Dressing will be reapplied when patient completes meal. Patient states he is hoping to go to rehab and begin working with PT/OT to get himself back home. He denies nausea/vomiting, fevers/chills, and chest pain. Objective - Vital Signs Vital signs: Vital Signs Temp 98.5 F 06/08/22 13:43 Pulse 75 06/08/22 13:43 Resp 18 06/08/22 13:43 BP 138/77 06/08/22 13:43 Pulse Ox 95 06/08/22 13:43 FiO2 Intake & Output 06/07/22 06/08/22 06/08/22 18:59 06:59 18:59 Intake Total 500 Output Total 700 2150 Balance -700 -1650 Intake: Oral 500 Output: Urine 700 2150 Other: Voiding Method Urinal Urinal # Voids 3 - Exam General: The patient is awake and alert, in no acute distress Skin: Skin is warm and dry with no obvious rashes or lesions. Hairy patches absent, no dorsal skin dimples, no cafe au lait spots. There is a surgical incision to right hip, CDI. Eye: Pupils are equal, round and reactive to light, extra-ocular movements are intact; there is normal conjunctiva bilaterally. Neck: The neck is supple, there is no tenderness and ROM intact. Cardiovascular: There is a regular rate and rhythm. No murmur, rub or gallop is appreciated. BLE edema noted. Respiratory: Lungs are clear to auscultation, respirations are non-labored, breath sounds are equal. Gastrointestinal: Soft, non-distended, non-tender abdomen. Back: There is no tenderness to palpation in the midline, paralumbar, par athoracic or buttocks region. There is no obvious deformity. Musculoskeletal: ROM limited secondary to pain and stiffness from surgical procedure. Shoulder abduction 5/5, elbow flexors 5/5, wrist dorsiflexors 5/5. finger abductor 5/5, urgent care physician assistant 5/5, hip flexor 4/5, knee flexor 4/5, ankle dorsiflexor 4/5, ankle plantarflexion 4/5 and extensor hallucis 4/5. Neurological: CN 2-12 intact. There are no obvious motor or sensory deficits. Movement and coordination equal and intact. Sensory exam to light touch intact C5-T1 and intact from L2-S1. Reflexes 2/4 in bilateral upper and lower extremities. Negative Hoffmans, babinski, and clonus signs. Psychiatric: Cooperative, appropriate mood & affect, normal judgment. - Labs CBC & Chem 7: 06/08/22 05:55 06/08/22 05:55 Labs: Abnormal Lab Results - Last 24 Hours (Table) 06/07/22 06/07/22 06/07/22 Range/Units 16:37 20:12 20:47 RBC (4.40-5.60) X 10*6/uL Hgb (13.0-17.0) g/dL Hct (39.6-50.0) % MCHC (32.0-37.0) g/dL RDW (11.5-14.5) % Carbon Dioxide (20.0-27.5) mmol/L Est GFR (CKD-EPI)NonAf (60.0-200.0) Glucose (70-110) mg/dL POC Glucose (mg/dL) 126 H 138 H 122 H (70-110) mg/dL Total Bilirubin (0.30-1.20) mg/dL Conjugated Bilirubin (0.20-0.40) mg/dL AST (14-35) U/L Total Protein (6.2-8.2) g/dL Albumin (3.8-4.9) g/dL Albumin/Globulin Ratio (1.60-3.17) g/dL 06/08/22 06/08/22 06/08/22 Range/Units 05:55 05:55 06:06 RBC 2.75 L (4.40-5.60) X 10*6/uL Hgb 7.9 L (13.0-17.0) g/dL Hct 26.2 L (39.6-50.0) % MCHC 30.2 L (32.0-37.0) g/dL RDW 15.1 H (11.5-14.5) % Carbon Dioxide 28.0 H (20.0-27.5) mmol/L Est GFR (CKD-EPI)NonAf 58.8 L (60.0-200.0) Glucose 115 H (70-110) mg/dL POC Glucose (mg/dL) 129 H (70-110) mg/dL Total Bilirubin 0.20 L (0.30-1.20) mg/dL Conjugated Bilirubin <0.20 L (0.20-0.40) mg/dL AST 38 H (14-35) U/L Total Protein 6.0 L (6.2-8.2) g/dL Albumin 3.3 L (3.8-4.9) g/dL Albumin/Globulin Ratio 1.22 L (1.60-3.17) g/dL / Range/Units 06:54 RBC (4.40-5.60) X 10*6/uL Hgb (13.0-17.0) g/dL Hct (39.6-50.0) % MCHC (32.0-37.0) g/dL RDW (11.5-14.5) % Carbon Dioxide (20.0-27.5) mmol/L Est GFR (CKD-EPI)NonAf (60.0-200.0) Glucose (70-110) mg/dL POC Glucose (mg/dL) 121 H (70-110) mg/dL Total Bilirubin (0.30-1.20) mg/dL Conjugated Bilirubin (0.20-0.40) mg/dL AST (14-35) U/L Total Protein (6.2-8.2) g/dL Albumin (3.8-4.9) g/dL Albumin/Globulin Ratio (1.60-3.17) g/dL Assessment and Plan Assessment: 1. s/p total right hip arthroplasty, post-op Day 11 2. Bilateral lower extremity edema 3. Inability to care for self Plan: Plan: -Appreciate information security consultant and team management. -Activity: Ambulate QID, OOB all meals, up and about, limit lifting bending twisting. Use walker or cane if needed for stability. -Daily PT/OT, increase ambulation strength and balance. -Pain control: Adequate at this time -Meds: reviewed -GI ppx: Colace -DVT PPX: Lovenox -Hygiene: May shower. Maintain dressing clean and dry. -Encourage IS 10x/hr -Dispo: Anticipate discharge to rehab when medically stable, patient is cleared from an orthopedic standpoint. We will continue to follow patient through hospital stay. *I reviewed and discussed this case with my attending Dr. Barrios, whom has reviewed this chart and films and is in agreement with assessment and plan of care as outlined above. I have personally seen and examined the patient, performed the documentation and the assessment and plan as written. Number of minutes spent on the visit: 20m.
[2022-06-08 16:41] LABS: Glucose,Whole Blood 134 mg/dL (70-110)
--- NOTE | 2022-06-08 17:32 | P.PN ---
Subjective This is a pleasant 76 years old -[place] male with past medical history of Diabetes Mellitus, Hyperlipidemia, Hypertension, Osteoarthritis (OA), gout, prostate cancer status post radiotherapy, history of kidney stone. Patient was in the hospital 05/27-05/29 for right hip arthroplasty. Presents because of weakness Patient presents because of inability to take care of himself, his is 86 years old and she has difficulty helping him getting up from sitting position. Patient at baseline walks short distances using a cane, he has history of severe osteoarthritis and he underwent right total hip arthroplasty about 10 days ago, after the procedure and surgery he was getting more difficult to move around and he needed the help of his since he came out of the hospital and to his home. Yesterday his legs were more swollen and his thought is better for him to go to rehab so I decided to come to the emergency room. Patient denies back pain, no numbness or tingling, but he has difficulty moving or bending his lower extremity joints, including both legs symmetrically, he can hardly November of the bed, at the same time they are significantly swollen with bilateral pitting leg edema but no induration. No erythema or evidence of cellulitis. No open wound. Also patient denies chest pain or shortness of breath or coughing. No abdominal pain Patient denies dysuria but complains from increased frequency. Patient also constipated and did not have bowel movement for 2 days, sometimes it was control of his bowel when he P's. He denies headache or dizziness, no blurred vision or slurred speech. No upper extremity weakness or numbness. He denies smoking, alcohol or illicit tracts On admission his glucose was slightly low at 72 Urinalysis is negative. Vitals are stable Labs showing no obesity normal 6.8, hemoglobin 8.6. Rest of CBC is unremarkable. Karen Feiner is unremarkable. Creatinine 1.0, potassium 5.2, sodium 134, glucose low at 72. We checked glucose 102. AST and ALT and rest of liver enzymes are normal. ProBNP 53, troponin negative. EKG showing normal sinus rhythm at [address]-T changes Chest x-ray: No acute process Venous Doppler of lower extremity: No DVT, excessive erythema In emergency room patient received iv Lasix 40 mgx1 Further labs showing elevated B12 1891, folate is more than 20. procalcitonin is mildly elevated at 0.22. TSH is normal 06/08/2022 Patient fully awake and alert and comfortable. His bilateral lower extremity swelling and weakness slightly and gradually improving. Neurology cleared the patient for discharge He remains on IV Lasix 40 mg twice daily Orthopedic team also to the patient for discharge. Vitamin B12, folate are elevated. TSH is normal. Pro-calcitonin is minimally elevated which is not significant. Hemoglobin 7.8. We will consult Dr. Gamboa His hemoglobin A1c is 6.0. Discontinue glipizide. Continue with diabetic diet. He needed only 1 unit per ISS Objective - Vital Signs Vital signs: Vital Signs Temp 98.8 F 06/08/22 07:21 Pulse 94 06/08/22 07:40 Resp 18 06/08/22 07:40 BP 169/81 06/08/22 07:21 Pulse Ox 96 06/08/22 07:21 FiO2 Intake & Output 06/07/22 06/08/22 06/08/22 18:59 06:59 18:59 Intake Total 500 Output Total 700 2150 Balance -700 -1650 Intake: Oral 500 Output: Urine 700 2150 Other: Voiding Method Urinal Urinal # Voids 3 - Exam GENERAL: The patient is alert and oriented x3, not in any acute distress. Well developed, well nourished. HEENT: Pupils are round and equally reacting to light. EOMI. No scleral icterus. No conjunctival pallor. Normocephalic, atraumatic. No pharyngeal erythema. No thyromegaly. CARDIOVASCULAR: S1 and S2 present. No murmurs, rubs, or gallops. PULMONARY: Chest is clear to auscultation, no wheezing or crackles. ABDOMEN: Soft, nontender, nondistended, normoactive bowel sounds. No palpable organomegaly. MUSCULOSKELETAL: No joint swelling or deformity. -EXTREMITIES: No cyanosis, clubbing, . Bilateral patellar leg edema, 2-3+ -NEUROLOGICAL: Gross neurological examination did not reveal any focal deficits. Cranial nerves are grossly intact. Both lower extremities are weak, he can barely lift them off the date, no sensory loss or tingling. Meningeal signs are absent SKIN: No rashes. no petechiae. - Labs CBC & Chem 7: 06/08/22 05:55 06/08/22 05:55 Labs: Abnormal Lab Results - Last 24 Hours (Table) 06/07/22 06/07/22 06/07/22 Range/Units 11:27 16:37 20:12 RBC (4.40-5.60) X 10*6/uL Hgb (13.0-17.0) g/dL Hct (39.6-50.0) % MCHC (32.0-37.0) g/dL RDW (11.5-14.5) % POC Glucose (mg/dL) 159 H 126 H 138 H (70-110) mg/dL 06/07/22 06/08/22 06/08/22 Range/Units 20:47 05:55 06:06 RBC 2.75 L (4.40-5.60) X 10*6/uL Hgb 7.9 L (13.0-17.0) g/dL Hct 26.2 L (39.6-50.0) % MCHC 30.2 L (32.0-37.0) g/dL RDW 15.1 H (11.5-14.5) % POC Glucose (mg/dL) 122 H 129 H (70-110) mg/dL 06/08/22 Range/Units 06:54 RBC (4.40-5.60) X 10*6/uL Hgb (13.0-17.0) g/dL Hct (39.6-50.0) % MCHC (32.0-37.0) g/dL RDW (11.5-14.5) % POC Glucose (mg/dL) 121 H (70-110) mg/dL Assessment and Plan Assessment: Bilateral lower extremity weakness and inability to ambulate, but worse since last surgery for his hip replacement Bilateral lower extremity edema Recent right hip replacement surgery for severe osteoarthritis Diabetes mellitus , with hyperglycemia on admission Hypertension Hyperlipidemia History of prostatic cancer status post radiotherapy History of gout Plan: This is a pleasant 76 years old male who presents with weakness, recent hip surgery and significant leg edema Continue with IV Lasix Orthopedic and neurology team. The patient for discharge Discontinue glipizide Continue with metoprolol, clonidine Check echocardiogram, check lower extremity ultrasound Labs and medication were reviewed.. Continue same treatment. Continue with symptomatic treatment. Resume home medication. Monitor lytes and vitals. DVT and GI prophylaxis. Further recommendations as per clinical course of the philip ent DVT prophylaxis: Subcutaneous heparin GI Prophylaxis: Pepcid PT/OT: Pending Prognosis is guarded
[2022-06-08] MEDS: cloNIDine HCL 0.1 MG TAB PO SCH ×2 (17:57→21:31)
[2022-06-08 20:39] LABS: Glucose,Whole Blood 133 mg/dL (70-110)
[2022-06-08] MEDS: FAMOTIDINE 20 MG TAB PO SCH (21:30)
--- NOTE | 2022-06-09 06:14 | P.CONS ---
History of Present Illness - Chief Complaint Walking difficulty, right hip replacement - History of Present Illness I had the opportunity to see patient for inpatient rehab consultation regarding the walking difficulty. Patient admitted to [facility], June 06 with walking difficulty and recent right hip replacement Dr. Barrios, May 28. Seen by orthopedics. Also seen by neurology, Dr. Hernandez, who doubts neurologic process. Venous Doppler negative for right or left leg DVT. Chest x-ray negative. PT and OT prescribed. Previous functional history as elicited from patient: 76-year-old left-handed male who is single lives in one floor home with significant other. Significant other does the cooking and laundry and both drive. Both retired. Patient independent with standing shower, gait with standard cane. PCP Dr. Lopez. Denies tobacco or alcohol. Review of Systems Review of systems: ENT: Denies sneezes or discharge. Eyes: Denies discharge or photophobia. Cardiac: Denies chest pain or palpitation. Pulmonary: Denies cough or shortness of breath. Gastrointestinal: Denies nausea, emesis, constipation, diarrhea. Genitourinary: Denies discharge or frequency. Musculoskeletal: Denies muscle or bone aches including right hip. Neurologic: Denies motor or sensory change. Endocrine: Denies shakes or sweats. Oncology: Denies cancers. Dermatologic: Denies rash, itching, pruritus. ALLERGY/immunology: Denies sneezes, rashes. Past Medical History Past Medical History: Cancer, Diabetes Mellitus, Hyperlipidemia, Hypertension, Osteoarthritis (OA), Prostate Disorder Additional Past Medical History / Comment(s): gout, prostate cancer- tx with radiation, hx kidney stone History of Any Multi-Drug Resistant Organisms: None Reported Past Surgical History: Hernia Repair, Orthopedic Surgery Additional Past Surgical History / Comment(s): arthroscopy surya knees, Right hip replacement, surya cataract/glaucoma surgery Past Anesthesia/Blood Transfusion Reactions: No Reported Reaction Smoking Status: Never smoker - Past Family History Brother(s) Family Medical History: Cancer Medications and Allergies Home Medications Medication Instructions Recorded Confirmed Type Simvastatin [Zocor] 80 mg PO HS 10/09/20 06/06/22 History allopurinoL [Zyloprim] 100 mg PO DAILY@1200 10/09/20 06/06/22 History amLODIPine BESYLATE/BENAZEPRIL 1 cap PO DAILY@1200 10/09/20 06/06/22 History [Lotrel 10-20 MG] cloNIDine HCL [Catapres] 0.1 mg PO TID 10/09/20 06/06/22 History Latanoprost Ophth [Xalatan 0.005%] 1 drop BOTH EYES DAILY 02/22/21 06/06/22 History glipiZIDE [Glucotrol] 5 mg PO DAILY@1200 02/22/21 06/06/22 History Metoprolol Succinate [Toprol XL] 50 mg PO DAILY@1200 05/21/22 06/06/22 History Torsemide [Demadex] 5 mg PO DAILY@1200 05/21/22 06/06/22 History Acetaminophen Tab [Tylenol] 650 mg PO Q6HR PRN tab 05/29/22 06/06/22 Rx Aspirin [Adult Low Dose Aspirin EC] 81 mg PO BID #60 tab 05/29/22 06/06/22 Rx Docusate [Colace] 100 mg PO DAILY #30 capsule 05/29/22 06/06/22 Rx HYDROcodone/APAP 7.5-325MG [Toney 1 tab PO Q6HR PRN 06/06/22 06/06/22 History 7.5] Allergies Allergy/AdvReac Type Severity Reaction Status Date / Time No Known Allergies Allergy Verified 06/06/22 16:55 Physical Exam Vitals: Vital Signs Temp Pulse Resp BP Pulse Ox 06/09/22 01:52 97.9 F 93 16 166/68 98 06/08/22 20:00 94 17 06/08/22 19:23 94 06/08/22 18:07 98.5 F 102 H 17 151/73 97 06/08/22 13:43 98.5 F 75 18 138/77 95 06/08/22 07:40 94 18 06/08/22 07:21 98.8 F 94 18 169/81 96 Intake and Output 06/08/22 06/08/22 06/09/22 14:59 22:59 06:59 Intake Total 550 Output Total 250 1000 Balance 300 -1000 Intake: Oral 550 Output: Urine 250 1000 Other: Voiding Method Urinal Urinal # Voids 4 1 Skin: Mildly atrophic, intact. General: Overweight/muscular build and comfortable appearance. Head: Normocephalic, atraumatic. Eyes: Symmetric. Pupils equal round. Ears: Symmetric. Hearing within normal limits. Mouth: Clear. Neck: Supple. Carotid without bruit. Cardiac: Regular rate and rhythm. Lungs: Clear anteriorly and posteriorly. Abdomen: Soft active nontender. Extremities: Normal tone. Neurological: Mental status: Alert, cooperative, pleasant. Cranial nerves: Symmetric facial tone and trapezius. Motor: Normal strength and isolation all 4 limbs but with at least mild to moderate degree weakness right hip and leg. Sensation: Intact throughout. DTRs: Symmetric and equal throughout. Mobility: Did not attempt to sit or stand this early a.m. Results CBC & Chem 7: 06/08/22 05:55 06/08/22 05:55 Labs: Abnormal Lab Results - Last 24 Hours (Table) 06/08/22 06/08/22 06/08/22 Range/Units 05:55 05:55 06:54 RBC 2.75 L (4.40-5.60) X 10*6/uL Hgb 7.9 L (13.0-17.0) g/dL Hct 26.2 L (39.6-50.0) % MCHC 30.2 L (32.0-37.0) g/dL RDW 15.1 H (11.5-14.5) % Carbon Dioxide 28.0 H (20.0-27.5) mmol/L Est GFR (CKD-EPI)NonAf 58.8 L (60.0-200.0) Glucose 115 H (70-110) mg/dL POC Glucose (mg/dL) 121 H (70-110) mg/dL Total Bilirubin 0.20 L (0.30-1.20) mg/dL Conjugated Bilirubin <0.20 L (0.20-0.40) mg/dL AST 38 H (14-35) U/L Total Protein 6.0 L (6.2-8.2) g/dL Albumin 3.3 L (3.8-4.9) g/dL Albumin/Globulin Ratio 1.22 L (1.60-3.17) g/dL 06/08/22 06/08/22 Range/Units 16:39 20:37 RBC (4.40-5.60) X 10*6/uL Hgb (13.0-17.0) g/dL Hct (39.6-50.0) % MCHC (32.0-37.0) g/dL RDW (11.5-14.5) % Carbon Dioxide (20.0-27.5) mmol/L Est GFR (CKD-EPI)NonAf (60.0-200.0) Glucose (70-110) mg/dL POC Glucose (mg/dL) 134 H 133 H (70-110) mg/dL Total Bilirubin (0.30-1.20) mg/dL Conjugated Bilirubin (0.20-0.40) mg/dL AST (14-35) U/L Total Protein (6.2-8.2) g/dL Albumin (3.8-4.9) g/dL Albumin/Globulin Ratio (1.60-3.17) g/dL Assessment and Plan (1) Unable to ambulate Current Visit: Yes Status: Acute Code(s): R26.2 - DIFFICULTY IN WALKING, NOT ELSEWHERE CLASSIFIED SNOMED Code(s): 137624285 Plan: Comments and plan: At this time PT and OT evaluations are pending. Patient has history of recent right hip replacement and failure to thrive returning to home by virtue walking difficulty. Thus we should consider possibility of inpatient rehabilitation seriously. Await therapy notes to present to patient's insurance. Above was discussed with patient.
[2022-06-09 06:56] LABS: Glucose,Whole Blood 90 mg/dL (70-110)
[2022-06-09] MEDS: DOCUSATE 100 MG CAP PO SCH (07:40)
[2022-06-09] MEDS: cloNIDine HCL 0.1 MG TAB PO SCH ×2 (07:40→15:32)
[2022-06-09] MEDS: FAMOTIDINE 20 MG TAB PO SCH (07:40)
[2022-06-09] MEDS: ASPIRIN 81 MG PO SCH (07:40)
[2022-06-09] MEDS: HEPARIN SODIUM,PORCINE/PF 5,000 UNIT/0.5 ML SYRINGE SQ SCH (07:41)
[2022-06-09] MEDS: FUROSEMIDE 10 MG/ML 4 ML VIAL IV SCH (07:41)
[2022-06-09] MEDS: LATANOPROST 0.005% OPHTH DROPS 2.5 ML BTL BOTH EYES SCH (07:47)
[2022-06-09 08:00] VITALS: RESP 17; TEMP 98.4
[2022-06-09 08:42] LABS: African American GFR (CKD) 61.9 (60.0-200.0); Anion Gap 11.8 mmol/L (10.00-18.00); BUN/Creat Ratio 19.08 Ratio (12.00-20.00); Blood Urea Nitrogen 24.8 mg/dL (9.0-27.0); Calcium 9.2 mg/dL (8.7-10.3); Carbon Dioxide 28.2 mmol/L (20.0-27.5); Magnesium 2.4 mg/dL (1.5-2.4); Non-African American GFR(CKD) 53.4 (60.0-200.0); Potassium 4.4 mmol/L (3.5-5.5)
[2022-06-09] MEDS: INSULIN ASPART (NovoLOG) 100 UNIT/ML VIAL SQ SCH ×2 (09:34→11:22)
--- NOTE | 2022-06-09 10:11 | P.PN ---
Subjective Progress Note Date: 06/09/22 Principal diagnosis: Status post right total hip arthroplasty, inability to care for self Patient was evaluated today at bedside, he is resting in his hospital bed. Patient states that he was up and ambulating with physical therapy earlier this morning. He feels is getting better. He is very eager to go to rehab. He denies any headaches, lightheadedness, chest pain or shortness of breath. Objective - Vital Signs Vital signs: Vital Signs Temp 98.4 F 06/09/22 07:58 Pulse 86 06/09/22 07:58 Resp 17 06/09/22 07:58 BP 143/75 06/09/22 07:58 Pulse Ox 97 06/09/22 07:58 FiO2 Intake & Output 06/08/22 06/09/22 06/09/22 18:59 06:59 18:59 Intake Total 550 120 Output Total 1250 Balance 550 -1250 120 Intake: Oral 550 120 Output: Urine 1250 Other: Voiding Method Urinal Urinal # Voids 4 1 - Exam Right lower extremity: Incision is clean, dry, and intact. The exofin fusion tape is in good condi tion. There is minimal soft tissue swelling and ecchymosis surrounding the medial and lateral aspects of the incision. Calf is soft, no tenderness with palpation. Plantar flexion, dorsiflexion, EHL, FHL are intact. Sensory exam to light touch throughout the extremity is intact, dorsal pedis pulses 2+. - Labs CBC & Chem 7: 06/08/22 05:55 06/09/22 05:38 Labs: Abnormal Lab Results - Last 24 Hours (Table) 06/08/22 06/08/22 06/08/22 Range/Units 05:55 05:55 16:39 RBC 2.75 L (4.40-5.60) X 10*6/uL Hgb 7.9 L (13.0-17.0) g/dL Hct 26.2 L (39.6-50.0) % MCHC 30.2 L (32.0-37.0) g/dL RDW 15.1 H (11.5-14.5) % Carbon Dioxide 28.0 H (20.0-27.5) mmol/L Est GFR (CKD-EPI)NonAf 58.8 L (60.0-200.0) Glucose 115 H (70-110) mg/dL POC Glucose (mg/dL) 134 H (70-110) mg/dL Total Bilirubin 0.20 L (0.30-1.20) mg/dL Conjugated Bilirubin <0.20 L (0.20-0.40) mg/dL AST 38 H (14-35) U/L Total Protein 6.0 L (6.2-8.2) g/dL Albumin 3.3 L (3.8-4.9) g/dL Albumin/Globulin Ratio 1.22 L (1.60-3.17) g/dL 06/08/22 06/09/22 Range/Units 20:37 05:38 RBC (4.40-5.60) X 10*6/uL Hgb (13.0-17.0) g/dL Hct (39.6-50.0) % MCHC (32.0-37.0) g/dL RDW (11.5-14.5) % Carbon Dioxide 28.2 H (20.0-27.5) mmol/L Est GFR (CKD-EPI)NonAf 53.4 L (60.0-200.0) Glucose (70-110) mg/dL POC Glucose (mg/dL) 133 H (70-110) mg/dL Total Bilirubin (0.30-1.20) mg/dL Conjugated Bilirubin (0.20-0.40) mg/dL AST (14-35) U/L Total Protein (6.2-8.2) g/dL Albumin (3.8-4.9) g/dL Albumin/Globulin Ratio (1.60-3.17) g/dL Assessment and Plan Assessment: Status post right total hip arthroplasty Inability to care for self Other medical comorbidities Plan: Pain control, continue with current oral pain medications DVT prophylaxis, continue subcu medication during hospital stay, plan for restarting aspirin 81 mg twice a day for 2 additional weeks after discharge Continue daily physical therapy, this including walker ambulation Await recommendations from other specialties regarding inpatient subacute rehab Wound care, will remove surgical tape prior to discharge. Okay to shower directly over the incision once this is done Other medical lab tech instructor and recommendations We'll continue to follow patient during inpatient stay Time with Patient: Less than 30
[2022-06-09 11:18] LABS: Glucose,Whole Blood 121 mg/dL (70-110)
[2022-06-09] MEDS: allopurinoL 100 MG TAB PO SCH (12:12)
[2022-06-09] MEDS: METOPROLOL SUCCINATE (ER) 50 MG TAB.ER.24H PO SCH (12:12)
--- NOTE | 2022-06-09 14:09 | P.DS ---
Providers Date of admission: 06/06/22 18:07 Expected date of discharge: 06/09/22 Attending physician: Jacob Gonzalez Consults: 06/06/22 18:10 Consult Physician Urgent Consulting Provider: Padilla Barrios Consult Reason/Comments: post op care Do you want consulting provider notified?: Yes, Notify in am 06/07/22 11:24 Consult Physician Urgent Consulting Provider: Marni Hernandez Consult Reason/Comments: Bilateral leg weakness Do you want consulting provider notified?: Yes 06/08/22 17:32 Consult Physician Routine Consulting Provider: Mumtaz Gamboa Consult Reason/Comments: b/l leg weakness Do you want consulting provider notified?: Yes, Notify in am Primary care physician: Wu Sin Hospital Course: Final diagnosis Bilateral lower extremity weakness and inability to ambulate, worsening since recent right hip replacement Bilateral lower extremity edema Recent right hip replacement surgery for severe osteoarthritis Diabetes mellitus , with hyperglycemia on admission Hypertension Hyperlipidemia History of prostatic cancer status post radiotherapy History of gout GI prophylaxis DVT prophylaxis Full code Discharge disposition Patient is being discharged in a stable condition with guarded prognosis to [facility] for continued physical therapy . Patient will follow- up with Dr. Washburn in the outpatient setting upon discharge. Patient is to follow-up with orthopedics as scheduled. Total time taken is greater than 35 minutes. Hospital course This is a 76-year-old male who was recently admitted with generalized weakness and inability to walk with gait dysfunction. Patient is status post right hip arthroplasty 2 weeks ago and went home and continued to become more weak and was brought back here for further evaluation for gait dysfunction weakness. Patient was evaluated by physical therapy and also [facility] medical rehab Dr. Gamboa And has been accepted at [facility] for continued PT/OT therapy and will be discharged today. Recommend continue with heparin subcutaneous prophylaxis twice daily. Also recommend continuing to monitor Accu-Cheks before meals and at bedtime and continue with consistent carb heart healthy diet and will continue sliding scale for now. Glipizide recently discontinued as hemoglobin A1c was found to be 6.0. Recommend repeat CBC, BMP, magnesium the next 2-3 days. Also recommend holding Bumex for the next few days and will follow-up with repeat labs. Currently no reports of chest pain, shortness of breath, or palpitations. Patient is afebrile. No reports of nausea or vomiting and patient is tolerating diet. Patient will discharge to [facility] today. Physical exam: Gen: This is a 76 year old male awake, alert and oriented 3, well-developed, well-nourished, obese HEENT: Head is atraumatic, normocephalic. Pupils equal, round. Sclerae is anicteric. NECK: Supple. No JVD. No lymphadenopathy. No thyromegaly. LUNGS: Clear to auscultation. No wheezes or rhonchi. No intercostal retractions. HEART: Regular rate and rhythm. No murmur. ABDOMEN: Soft. Bowel sounds are present. No masses. No tenderness. EXTREMITIES: No pedal edema. No calf tenderness. NEUROLOGICAL: Patient is awake, alert and oriented x3. Cranial nerves 2 through 12 are grossly intact. Diffusely weak Please refer to medication reconciliation sheet for a list of medications. The impression and plan of care has been dictated by Angelica De, Nurse Practitioner as directed. Dr. Juan Jose MD I have performed a history and examination and MDM of this patient, discussed the same with the dictator, and agree with the dictator's assessment and plan as written ,documented as a scribe. Based on total visit time, I have performed more than 50% of the visit. Patient Condition at Discharge: Stable Plan - Discharge Summary Discharge Rx Participant: No New Discharge Prescriptions: New Heparin Sodium,Porcine [Heparin Sodium] 5,000 unit SQ Q12HR 30 Days #60 each INSULIN ASPART (NovoLOG) [NovoLOG (formulary)] 0 unit SQ ACHS each amLODIPine [Norvasc] 10 mg PO DAILY 30 Days #30 tablet Famotidine [Pepcid] 20 mg PO BID tab Continue cloNIDine HCL [Catapres] 0.1 mg PO TID allopurinoL [Zyloprim] 100 mg PO DAILY@1200 Simvastatin [Zocor] 80 mg PO HS Metoprolol Succinate [Toprol XL] 50 mg PO DAILY@1200 Acetaminophen Tab [Tylenol] 650 mg PO Q6HR PRN tab PRN Reason: Fever And/ Or Pain Latanoprost Ophth [Xalatan 0.005%] 1 drop BOTH EYES DAILY Docusate [Colace] 100 mg PO DAILY #30 capsule Changed Aspirin [Adult Low Dose Aspirin EC] 81 mg PO DAILY #30 tab HYDROcodone/APAP 7.5-325MG [Blanket 7.5-325] 1 tab PO Q6HR PRN #6 tab PRN Reason: Pain Discontinued amLODIPine BESYLATE/BENAZEPRIL [Lotrel 10-20 MG] 1 cap PO DAILY@1200 glipiZIDE [Glucotrol] 5 mg PO DAILY@1200 Torsemide [Demadex] 5 mg PO DAILY@1200 Discharge Medication List Simvastatin [Zocor] 80 mg PO HS 10/09/20 [History] allopurinoL [Zyloprim] 100 mg PO DAILY@1200 10/09/20 [History] cloNIDine HCL [Catapres] 0.1 mg PO TID 10/09/20 [History] Latanoprost Ophth [Xalatan 0.005%] 1 drop BOTH EYES DAILY 02/22/21 [History] Metoprolol Succinate [Toprol XL] 50 mg PO DAILY@1200 05/21/22 [History] Acetaminophen Tab [Tylenol] 650 mg PO Q6HR PRN tab 05/29/22 [Rx] Docusate [Colace] 100 mg PO DAILY #30 capsule 05/29/22 [Rx] Aspirin [Adult Low Dose Aspirin EC] 81 mg PO DAILY #30 tab 06/09/22 [Rx] Famotidine [Pepcid] 20 mg PO BID tab 06/09/22 [Rx] HYDROcodone/APAP 7.5-325MG [Blanket 7.5-325] 1 tab PO Q6HR PRN #6 tab 06/09/22 [Rx] Heparin Sodium,Porcine [Heparin Sodium] 5,000 unit SQ Q12HR 30 Days #60 each 06/09/22 [Rx] INSULIN ASPART (NovoLOG) [NovoLOG (formulary)] 0 unit SQ ACHS each 06/09/22 [Rx] amLODIPine [Norvasc] 10 mg PO DAILY 30 Days #30 tablet 06/09/22 [Rx] Follow up Appointment(s)/Referral(s): January Washburn MD [Primary Care Provider] - 1-2 days Ambulatory/Diagnostic Orders: Complete Blood Count w/diff [LAB.AMB] Time Frame: 3 Days, Location: None Selected Activity/Diet/Wound Care/Special Instructions: Patient is going to [facility] for inpatient rehab Activity as tolerated Glipizide has been discontinued recommend continuing to monitor Accu-Cheks before meals and at bedtime and continue with sliding scale NovoLog sliding scale 0-150 equals 0 units 151-200 equals 2 units 201-250 equals 4 units 251-300 equals 6 units 301-350 equals 8 units 351-400 equals 10 units Please notify provider if blood sugar is 400 or above Continue consistent carb heart healthy diet Continue with heparin subcutaneous twice daily injections Patient will need follow-up in the outpatient setting with orthopedics status post right hip replacement Recommend repeat labs of CBC, BMP, magnesium in 2-3 days Recommend elevate lower extremities while at rest Patient takes Bumex 5 mg daily and recommend holding and recommend repeat labs in 24 hours of CBC, BMP, magnesium Discharge Disposition: TRANSFER TO SNF/ECF
[2022-06-09 15:10] VITALS: BP 122/68; PULSE 91
[2022-06-10] MEDS ORDERED: FAMOTIDINE 20 MG TAB PO SCH (09:00)
== END 2022-06-09 16:03 | DRG 948 ==
LOC: EC 15:35 → 4SSUR 18:07
PROVIDERS: ADMIT Hospitalist; ATTEND Hospitalist
DX: R53.1 Weakness (principal); R60.0 Localized edema; E11.65 Type 2 diabetes mellitus with hyperglycemia; T50.1X6A Underdosing of loop [high-ceiling] diuretics, initial encounter; Z91.138 Patient's unintentional underdosing of medication regimen for other reason; Z96.641 Presence of right artificial hip joint; I10 Essential (primary) hypertension; E78.5 Hyperlipidemia, unspecified; R26.9 Unspecified abnormalities of gait and mobility; R26.2 Difficulty in walking, not elsewhere classified; M19.90 Unspecified osteoarthritis, unspecified site; K59.00 Constipation, unspecified; M10.9 Gout, unspecified; E66.9 Obesity, unspecified; Z68.36 Body mass index [BMI] 36.0-36.9, adult; Z79.82 Long term (current) use of aspirin; Z79.84 Long term (current) use of oral hypoglycemic drugs; Z79.899 Other long term (current) drug therapy; Z85.46 Personal history of malignant neoplasm of prostate; Z92.3 Personal history of irradiation; Z87.442 Personal history of urinary calculi
CPT/HCPCS: 36415; 71046; 80048; 80053; 80076; 81003; 82607; 82746; 83036; 83735; 83880; 84145; 84443; 84484; 85025; 85610; 85730; 93005; 93306; 93970; 96374; 99285

== ENCOUNTER → 2025-05-30 | Outpatient (CLI) | payer MEDICARE, OTHER ==
--- NOTE | 2025-05-30 15:01 | US ---
EXAMINATION TYPE: US kidneys/renal and bladder DATE OF EXAM: 05/30/2025 COMPARISON: US 12/29/2022, CT abdomen and pelvis 07/17/2020 CLINICAL INDICATION: Male, 79 years old with history of N19 RENAL FAILURE,; Renal failure. 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 Hx kidney stone. TECHNIQUE: Grayscale imaging of the bilateral kidneys and urinary bladder: FINDINGS: EXAM MEASUREMENTS: Right Kidney: 13.1 x 5.9 x 6.0 cm Left Kidney: 10.0 x 4.5 x 4.9 cm Right Kidney: *Enlarged. 2 anechoic areas seen, larger area is seen at the upper pole: 2.3 x 1.7 x 2. 0 cm. *Hyperechoic area seen at mid: 1.7 x 1.3 x 0.9 cm. Left Kidney: Very difficult to visualize borders. Cortex appears thin. *2 hypoechoic areas seen, la rger is at the lower pole: 2.8 x 2.2 x 2.5 cm. Bladder: *Appears anechoic. ?Bladder wall appears thick at 4 mm. Bilateral Jets seen: Yes Mildly enlarged right kidney with 2 simple appearing cysts identified. There is a hyperechoic lesion identified within the mid cortical region measuring up to 1.7 cm. No shadowing calculus or hydronephr osis. Cortical thinning of the left kidney. There are 2 simple appearing cyst within the left kidney. No hy dronephrosis involving the left kidney. No shadowing calculus. Bilateral ureteral jets identified. The urinary bladder appears anechoic with marginal thickened wall suggested. IMPRESSION: 1. No hydronephrosis. 2. Bilateral simple renal cysts with a hyperechoic 1.7 cm lesion within the right kidney which may re present an angiomyolipoma versus renal cell carcinoma versus other. Further evaluation with MR abdome n with IV contrast renal mass protocol is recommended. 3. Marginal thickened urinary bladder wall suggested. Correlate with urinalysis for cystitis. 4. Findings consistent with known atrophy of the left kidney. [facility], , 05/30/2025 2:59 PM
== END | disposition home or self-care (01) ==
LOC: RADUSWWP 13:38
PROVIDERS: ATTEND Family Medicine
DX: N19 Unspecified kidney failure (principal); N28.1 Cyst of kidney, acquired; Z87.442 Personal history of urinary calculi
CPT/HCPCS: 76770